=== PATIENT | female | born 1950 | race Caucasian/White ===

== ENCOUNTER → 2018-03-25 08:50 | Outpatient (CLI) | payer MEDICARE, SELFPAY ==
[2018-03-25 12:02] LABS: Absolute Lymphocyte Count 1.34 X10^3/ul (0.83-4.51); Absolute Neutrophil Count 5.4 X10^3/uL (2.0-7.7); Basophil# 0.03 X10^3/uL; Basophil% 0.4 % (0-1); Eosinophil# 0.07 X10^3/uL; Eosinophils% 0.9 % (0-5); Hematocrit 42.6 % (37-47); Hemoglobin 14.1 g/dl (12.0-15.0); Lymphocyte # 1.34 X10^3/ul (4.0); Lymphocyte % 17.8 % (19-41); Mean Corp Hgb Conc 33.1 g/gl (32-36); Mean Corpuscular Hgb 29.7 pg (27.0-32.0); Mean Corpuscular Volume 89.7 fL (81-99); Mean Platelet Vol. 9.8 fl (6.2-12.0); Monocyte# 0.62 X10^3/uL; Monocyte% 8.3 % (0-10); Neutrophil # 5.44 X10^3/uL (2.7-7.7); Neutrophil % 72.5 % (47-70); Platelet Count 315 K/mm3 (150-450); RBC Distribution Width CV 12.1 % (11.6-14.6); RBC Distribution Width SD 39.5 fl (35.1-43.9); Red Blood Count 4.75 M/mm3 (4.2-5.4); White Blood Count 7.5 K/mm3 (4.4-11.0)
[2018-03-25 12:06] LABS: POSITIVE COUNT NO; POSITIVE DIFFERENTIAL NO; POSITIVE MORPHOLOGY NO
[2018-03-25 12:36] LABS: AST(SGOT) 21 U/L (15-37); Alanine Aminotransfer ALT/SGPT 33 U/L (13-56); Albumin, Serum 3.8 g/dL (3.2-5.0); Alkaline Phosphatase 62 U/L (45-117); Anion Gap 9 (5-15); BUN 21 mg/dL (7-18); BUN/Creat Ratio 25.9 RATIO (10-20); Chloride 105 mmol/L (98-107); Creatinine, Serum 0.81 mg/dL (0.55-1.02); EST Glomerular Filtration Rate 74 mL/min (>60); Est Glom Filt Rate - Afr Amer 90 mL/min (>60); Globulin 3.7 g/dL (2.2-4.2); Glucose 105 mg/dL (74-106); Potassium 4.1 mmol/L (3.5-5.1); Protein, Total 7.5 g/dL (6.4-8.2); Sodium Level 141 mmol/L (136-145); Thyroid Stim Hormone (TSH) 1.49 uIU/mL (0.358-3.74); Vitamin D,25 Hydroxy 25.5 ng/mL (29.95-100.01)
== END ==
PROVIDERS: Family Provider Family Medicine Geriatric Medicine; PCP Family Medicine Geriatric Medicine; Visit Provider Family Medicine Geriatric Medicine
DX: I10 Essential (primary) hypertension (principal); E55.9 Vitamin D deficiency, unspecified; Z13.89 Encounter for screening for other disorder
CPT/HCPCS: 36415; 80053; 82306; 84443; 85025

== ENCOUNTER → 2018-04-28 07:56 | Outpatient (CLI) | payer MEDICARE, SELFPAY ==
--- NOTE | 2018-04-28 07:57 | BI_ITS ---
MAMMOGRAPHY - BILATERAL SCREENING 3-D CARLTON SYNTHESIS REASON FOR EXAM: Female, 67 years old. Bilateral Screening 3-D tomosynthesis PERTINENT HISTORY: No significant family history. TECHNIQUE: 2-D mammograms and 3-D Carlton synthesis of the breast (s) were performed. CAD was performed. COMPARISON: 04/27/2017 FINDINGS: The breast composition is composed of scattered fibroglandular density. Scattered benign calcifications are seen. No dense spiculated masses or suspicious microcalcifications are identified. No architectural distortion is identified. There is no skin thickening or retraction. There has been no significant change since the prior study. BI/SCREENING MAMM (CAD), BILAT IMPRESSION: No mammographic signs of malignancy. Routine yearly mammograms recommended. ASSESSMENT CATEGORY: BIRADS Category 1: Negative. A letter regarding these results will be sent to the patient by the facility within 30 days. FOLLOW UP RECOMMENDATION: Yearly follow up mammogram recommended. (A) Approximately 10% of breast cancers are not detected by mammography. A normal mammogram should not delay biopsy of a clinically suspicious abnormality. Electronically Signed: Aris Black MD at 11:33 EDT , Service support ,
== END ==
PROVIDERS: Family Provider Family Medicine Geriatric Medicine; PCP Family Medicine Geriatric Medicine; Visit Provider Family Medicine Geriatric Medicine
DX: Z12.31 Encounter for screening mammogram for malignant neoplasm of breast (principal)
CPT/HCPCS: 77063; 77067

== ENCOUNTER → 2018-11-23 13:30 | Outpatient (CLI) | payer MEDICARE, SELFPAY ==
[2018-08-08 09:52] VITALS: BMI 29.5
[2018-11-23 16:10] LABS: Absolute Lymphocyte Count 1.68 X10^3/ul (0.83-4.51); Absolute Neutrophil Count 4.3 X10^3/uL (2.0-7.7); Basophil# 0.04 X10^3/uL; Basophil% 0.6 % (0-1); Eosinophil# 0.13 X10^3/uL; Eosinophils% 1.9 % (0-5); Hematocrit 41.8 % (37-47); Lymphocyte # 1.68 X10^3/ul (4.0); Lymphocyte % 24.3 % (19-41); Mean Corp Hgb Conc 33.5 g/gl (32-36); Mean Corpuscular Hgb 29.9 pg (27.0-32.0); Mean Corpuscular Volume 89.1 fL (81-99); Mean Platelet Vol. 10.6 fl (6.2-12.0); Monocyte# 0.76 X10^3/uL; Neutrophil # 4.28 X10^3/uL (2.7-7.7); Neutrophil % 62.1 % (47-70); Platelet Count 314 K/mm3 (150-450); RBC Distribution Width CV 11.7 % (11.6-14.6); Red Blood Count 4.69 M/mm3 (4.2-5.4); White Blood Count 6.9 K/mm3 (4.4-11.0)
[2018-11-23 16:20] LABS: POSITIVE COUNT NO; POSITIVE DIFFERENTIAL NO; POSITIVE MORPHOLOGY NO
[2018-11-23 16:25] LABS: AST(SGOT) 22 U/L (15-37); Alanine Aminotransfer ALT/SGPT 30 U/L (13-56); Albumin, Serum 3.7 g/dL (3.2-5.0); Alkaline Phosphatase 76 U/L (45-117); Anion Gap 8 (5-15); BUN 17 mg/dL (7-18); BUN/Creat Ratio 23.3 RATIO (10-20); Calcium,Total 8.9 mg/dL (8.5-10.1); Chloride 102 mmol/L (98-107); Creatinine, Serum 0.73 mg/dL (0.55-1.02); EST Glomerular Filtration Rate 84 mL/min (>60); Est Glom Filt Rate - Afr Amer 101 mL/min (>60); Globulin 3.8 g/dL (2.2-4.2); Glucose 89 mg/dL (74-106); Potassium 3.6 mmol/L (3.5-5.1); Protein, Total 7.5 g/dL (6.4-8.2); Sodium Level 136 mmol/L (136-145); Thyroid Stim Hormone (TSH) 2.93 uIU/mL (0.358-3.74)
== END ==
PROVIDERS: Family Provider Family Medicine Geriatric Medicine; PCP Family Medicine Geriatric Medicine; Visit Provider Family Medicine Geriatric Medicine
DX: I10 Essential (primary) hypertension (principal); E55.9 Vitamin D deficiency, unspecified
CPT/HCPCS: 36415; 80053; 82306; 84443; 85025

== ENCOUNTER → 2019-03-28 | Outpatient (CLI) | payer MEDICARE, SELFPAY ==
[2018-08-08 09:52] VITALS: BMI 29.5
--- NOTE | 2019-03-28 13:55 | RAD_ITS ---
STUDY: X-RAY - CERVICAL SPINE REASON FOR EXAM: Female, 68 years old. TECHNIQUE: 3 view(s) of the cervical spine were obtained. COMPARISON: None FINDINGS: The vertebral bodies are of normal height, there is straightening of the cervical lordosis. The intervertebral disks between C2-3 and C3-4 are maintained. There is slight narrowing of C4-5 with minimal anterior osteophyte formation. Severe narrowing is seen between C5-C6 and C6-7 with anterior osteophyte formation. The spinous processes are unremarkable. The facet joints are intact RAD/Cerv Spine 2 or 3 Views IMPRESSION: Narrowing of the intervertebral disc start from the level of C4 down to C7 with anterior osteophyte formation without significant spondylosis. Electronically Signed: Juan Osman, at 16:47 EDT Tel , Service support ,
[2019-03-28 17:23] LABS: Absolute Lymphocyte Count 1.61 X10^3/ul (0.83-4.51); Absolute Neutrophil Count 3.8 X10^3/uL (2.0-7.7); Basophil# 0.07 X10^3/uL; Basophil% 1.1 % (0-1); Eosinophil# 0.14 X10^3/uL; Eosinophils% 2.3 % (0-5); Hematocrit 42.6 % (37-47); Hemoglobin 14.2 g/dl (12.0-15.0); Lymphocyte # 1.61 X10^3/ul (4.0); Lymphocyte % 26.4 % (19-41); Mean Corp Hgb Conc 33.3 g/gl (32-36); Mean Corpuscular Hgb 29.5 pg (27.0-32.0); Mean Corpuscular Volume 88.6 fL (81-99); Mean Platelet Vol. 10.5 fl (6.2-12.0); Monocyte# 0.47 X10^3/uL; Monocyte% 7.7 % (0-10); Neutrophil % 62.3 % (47-70); Platelet Count 297 K/mm3 (150-450); RBC Distribution Width CV 12.1 % (11.6-14.6); Red Blood Count 4.81 M/mm3 (4.2-5.4); White Blood Count 6.1 K/mm3 (4.4-11.0)
[2019-03-28 17:30] LABS: POSITIVE COUNT NO; POSITIVE DIFFERENTIAL NO; POSITIVE MORPHOLOGY NO
[2019-03-28 17:53] LABS: Vitamin D,25 Hydroxy 25.3 ng/mL (29.95-100.01)
[2019-03-28 17:55] LABS: AST(SGOT) 23 U/L (15-37); Alanine Aminotransfer ALT/SGPT 32 U/L (13-56); Albumin, Serum 3.7 g/dL (3.2-5.0); Alkaline Phosphatase 79 U/L (45-117); Anion Gap 13 (5-15); BUN 17 mg/dL (7-18); BUN/Creat Ratio 22.5 RATIO (10-20); Chloride 104 mmol/L (98-107); Creatinine, Serum 0.76 mg/dL (0.55-1.02); EST Glomerular Filtration Rate 81 mL/min (>60); Est Glom Filt Rate - Afr Amer 97 mL/min (>60); Globulin 3.7 g/dL (2.2-4.2); Glucose 89 mg/dL (74-106); Potassium 3.6 mmol/L (3.5-5.1); Protein, Total 7.4 g/dL (6.4-8.2); Sodium Level 141 mmol/L (136-145); Thyroid Stim Hormone (TSH) 2.08 uIU/mL (0.358-3.74)
== END | disposition home or self-care (01) ==
LOC: POLAB3 13:04 → RAD 13:48
PROVIDERS: Family Provider Family Medicine Geriatric Medicine; PCP Family Medicine Geriatric Medicine; Referring Provider Family Medicine Geriatric Medicine; Visit Provider Family Medicine Geriatric Medicine
DX: E55.9 Vitamin D deficiency, unspecified (principal); I10 Essential (primary) hypertension; M54.2 Cervicalgia
CPT/HCPCS: 36415; 72040; 80053; 82306; 84443; 85025

== ENCOUNTER → 2019-05-16 10:02 | Outpatient (CLI) | payer MEDICARE, SELFPAY ==
[2018-08-08 09:52] VITALS: BMI 29.5
--- NOTE | 2019-05-16 10:05 | BI_ITS ---
MAMMOGRAPHY - BILATERAL SCREENING REASON FOR EXAM: Female, 68 years old. Routine annual screening examination. PERTINENT HISTORY: Non-contributory. TECHNIQUE: Digital bilateral breast carlton (3D mammographic acquisition) in the CC and MLO projections. 2-D mediolateral oblique (MLO) and craniocaudad (CC) views of both breasts were obtained. CAD: Full Field Digital Mammography with Computer Added Detection was performed. COMPARISON: Comparison is made with prior study dated April 28, 2018 and April 27, 2017. FINDINGS: Breast Composition: There are scattered areas of fibroglandular density. There are no dominant masses or suspicious calcifications. No other significant abnormalities are identified. There has been no significant change since the prior study. BI/SCREEN MAMM (CAD) W/CARLTON BILAT IMPRESSION: Stable bilateral screening mammogram. Yearly follow-up mammogram recommended. (A) ASSESSMENT CATEGORY: BIRADS Category 1: Negative. A letter regarding these results will be sent to the patient by the facility within 30 days. Approximately 10% of breast cancers are not detected by mammography. A normal mammogram should not delay biopsy of a clinically suspicious abnormality. [id number] Electronically Signed: Yassine Chance, at 13:03 EDT , Service support ,
--- NOTE | 2019-05-16 10:08 | BD_ITS ---
STUDY: DUAL ENERGY X-RAY ABSORPTIOMETRY / DXA REASON FOR EXAM: Female, 68 years old. The patient is postmenopausal. Loss of height. TECHNIQUE: Bone Mineral Density (BMD) measurements of lumbar spine and bilateral hips were obtained. COMPARISON: Comparison is made with prior study dated December 25, 2010. FINDINGS: Lumbar Spine (L1-L4): g/cm2 (1.143) / T-score (-0.3) / Z-score (1.4) Findings are suggestive of normal bone density with a low fracture risk. Left Femur Total: g/cm2 (1.081) / T-score (0.6) / Z-score (2.1) Left Femoral Neck: g/cm2 (1.075) / T-score (0.3) / Z-score (2.0) Right Femur Total: g/cm2 (1.095) / T-score (0.7) / Z-score (2.2) Right Femoral Neck: g/cm2 (1.006) / T-score (-0.2) / Z-score (1.5) The T-Scores on the most recent prior examination were: Lumbar Spine (L1-L4): There has been improvement of bone density since the previous examination. Left Femur Total: which represents an improvement of 1%. Right Femur Total: which represents an improvement of 0.6%. BD/Dexa Bone Density Study IMPRESSION: The patient is considered normal as outlined below according to World Vargas Organization (WHO) criteria with a low fracture risk. There has been improvement of bone density since the previous examination. Reference Information: The T-score is the number of standard deviations above or below the standard which is normal for young adults at their peak bone mineral density. The World Health Organization (WHO) interprets the T-scores as follows: Above -1 Normal bone density Between -1 and -2.5 Osteopenia Equal to / or below -2.5 Osteoporosis As a practical clinical guideline, osteopenia may be graded as follows: Mild -1 through -1.5 Moderate -1.6 through -2.0 Severe -2.1 through -2.4 The Z-score is the number of standard deviations above or below age-matched controls. A Z-score of less than -1.5 would be considered abnormal. References: 1. NIH Osteoporosis and Related Bone Diseases http://www.osteo.org 2. International Society for Clinical Densitometry http://www.iscd.org 3. National Osteoporosis Foundation http://www.nof.org Electronically Signed: Yassine Chance, at 15:33 EDT , Service support ,
== END ==
PROVIDERS: Family Provider Family Medicine Geriatric Medicine; PCP Family Medicine Geriatric Medicine; Referring Provider Family Medicine Geriatric Medicine; Visit Provider Family Medicine Geriatric Medicine
DX: Z78.0 Asymptomatic menopausal state (principal); Z12.31 Encounter for screening mammogram for malignant neoplasm of breast
CPT/HCPCS: 77063; 77067; 77080

== ENCOUNTER → 2019-08-01 | Outpatient (CLI) | payer MEDICARE, SELFPAY ==
[2018-08-08 09:52] VITALS: BMI 29.5
--- NOTE | 2019-08-01 07:54 | ECHOD_ITS ---
Reason For Study: MVP Procedure This was a 2D Doppler, Color Flow transthoracic echocardiogram. The exam was of adequate technical quality. Exam performed in department. Left Ventricle Normal LV size. Left ventricular systolic function is normal. The estimated ejection fraction is 65 %. No evidence for diastolic dysfunction. No regional wall motion abnormalities noted. Right Ventricle Normal RV size. Normal systolic function. Atria The left atrium is mildly enlarged. Normal right atrium. No doppler evidence for ASD. Mitral Valve There is no mitral annular calcification. Mild diffuse mitral valve thickening. Mild mitral valve prolapse. Moderate (2+) mitral valve insufficiency. Tricuspid Valve Normal tricuspid valve. Trivial tricuspid valve insufficiency. Right ventricular systolic pressure estimated to be 19 mmHg. Aortic Valve Trisinus/trileaflet aortic valve. Mild focal aortic valve thickening. Pulmonic Valve The pulmonic valve is not well visualized. Mild (1+) pulmonic valve insufficiency. Great Vessels Normal sized aortic root. Pericardium/Pleural No pericardial effusion. MMode/2D Measurements & Calculations LVIDd: 4.1 cm IVSd: 0.85 cm Ao root diam: 3.5 cm LVIDs: 2.7 cm LVPWd: 0.88 cm LA dimension: 3.6 cm RVDd: 3.2 cm FS: 35.0 % LAV(MOD-bp): 52.7 ml LVAd ap4: 26.3 cm2 SV(MOD-sp4): 44.3 ml LAV(MOD-bp) Indexed: 27.2 ml/m2 EDV(MOD-sp4): 73.9 ml LAV(MOD-sp2): 47.6 ml EDV(sp4-el): 76.0 ml LAV(MOD-sp4): 51.9 ml LVAs ap4: 15.0 cm2 ESV(MOD-sp4): 29.6 ml ESV(sp4-el): 29.4 ml EF(MOD-sp4): 59.9 % EF(sp4-el): 61.3 % SV(sp4-el): 46.6 ml LA A4 area: 17.7 cm2 RA A4 area: 12.9 cm2 Time Measurements MV dec time: 0.24 sec Doppler Measurements & Calculations MV E max silviano: 70.7 cm/sec Lat Peak E' Silviano: 6.3 cm/sec Med Peak E' Silviano: 6.4 cm/sec MV A max silviano: 91.0 cm/sec E/E' lat: 11.2 E/E' med: 11.1 MV E/A: 0.78 MV V2 max: 103.5 cm/sec MV P1/2t max silviano: 92.5 cm/sec Ao V2 max: 125.1 cm/sec MV max P.3 mmHg MV P1/2t: 107.3 msec Ao max P.3 mmHg MV V2 mean: 61.2 cm/sec Ao V2 mean: 81.3 cm/sec MV mean P.7 mmHg MV dec slope: 252.7 cm/sec2 Ao mean P.0 mmHg MV V2 VTI: 37.6 cm MVA(P1/2t): 2.1 cm2 Ao V2 VTI: 26.0 cm LV V1 max: 97.6 cm/sec MR max silivano: 579.1 cm/sec PA V2 max: 111.7 cm/sec LV V1 max P.8 mmHg MR max P.1 mmHg LV V1 mean P.8 mmHg MR mean silviano: 441.1 cm/sec LV V1 mean: 62.0 cm/sec MR mean P.7 mmHg LV V1 VTI: 21.1 cm MR VTI: 180.8 cm TR max silviano: 200.7 cm/sec TR max P.1 mmHg Interpretation Summary Left ventricular systolic function is normal. The estimated ejection fraction is 65 %. The left atrium is mildly enlarged. Mild mitral valve prolapse. Mild diffuse mitral valve thickening. Moderate (2+) mitral valve insufficiency. Trivial tricuspid valve insufficiency. Mild focal aortic valve thickening. Mild (1+) pulmonic valve insufficiency. Right ventricular systolic pressure estimated to be 19 mmHg. No evidence for diastolic dysfunction. Ordering Physician: Emir White Referring Physician: Lennox Babcock Chi Performed By: Gerry William RCS
== END | disposition home or self-care (01) ==
LOC: CVS 07:53
PROVIDERS: Family Provider Family Medicine Geriatric Medicine; PCP Family Medicine Geriatric Medicine; Referring Provider Internal Medicine Cardiovascular Disease; Visit Provider Internal Medicine Cardiovascular Disease
DX: I34.0 Nonrheumatic mitral (valve) insufficiency (principal); I34.1 Nonrheumatic mitral (valve) prolapse; I49.1 Atrial premature depolarization
CPT/HCPCS: 93306

== ENCOUNTER → 2019-11-13 09:39 | Outpatient (CLI) | payer MEDICARE, SELFPAY ==
[2019-08-16 14:15] VITALS: BMI 28.8
[2019-11-13 12:16] LABS: Absolute Lymphocyte Count 1.61 X10^3/uL (0.83-4.51); Absolute Neutrophil Count 4.2 X10^3/uL (2.0-7.7); Basophil# 0.06 X10^3/uL; Basophil% 0.8 % (0-1); Eosinophil# 1.05 X10^3/uL; Eosinophils% 13.7 % (0-5); Hemoglobin 14.4 g/dL (12.0-15.0); Lymphocyte # 1.61 X10^3/ul (4.0); Mean Corp Hgb Conc 32.7 g/dL (32-36); Mean Corpuscular Hgb 28.8 pg (27.0-32.0); Mean Platelet Vol. 10.3 fl (6.2-12.0); Monocyte% 9.1 % (0-10); NRBC Flagged by Analyzer 0 % (0-5); Neutrophil # 4.21 X10^3/uL (2.7-7.7); Platelet Count 328 K/mm3 (150-450); RBC Distribution Width CV 11.7 % (11.6-14.6); RBC Distribution Width SD 37.4 fl (35.1-43.9); White Blood Count 7.7 K/mm3 (4.4-11.0)
[2019-11-13 12:39] LABS: ALB/GLOB Ratio 1.1 RATIO (0.9-2.4); AST(SGOT) 17 U/L (15-37); Alanine Aminotransfer ALT/SGPT 35 U/L (13-56); Albumin, Serum 3.9 g/dL (3.2-5.0); Alkaline Phosphatase 71 U/L (45-117); Anion Gap 7 (5-15); BUN 18 mg/dL (7-18); BUN/Creat Ratio 23.1 RATIO (10-20); Calcium,Total 9.3 mg/dL (8.5-10.1); Chloride 101 mmol/L (98-107); Creatinine, Serum 0.78 mg/dL (0.55-1.02); EST Glomerular Filtration Rate 78 mL/min (>60); Est Glom Filt Rate - Afr Amer 94 mL/min (>60); Globulin 3.7 g/dL (2.2-4.2); Glucose 88 mg/dL (74-106); Potassium 3.8 mmol/L (3.5-5.1); Protein, Total 7.6 g/dL (6.4-8.2); Sodium Level 136 mmol/L (136-145); Thyroid Stim Hormone (TSH) 2.21 uIU/mL (0.358-3.74)
[2019-11-13 12:40] LABS: Vitamin D,25 Hydroxy 24.6 ng/mL (29.95-100.01)
== END ==
PROVIDERS: PCP Family Medicine Geriatric Medicine; Visit Provider Family Medicine Geriatric Medicine
DX: I10 Essential (primary) hypertension (principal); E55.9 Vitamin D deficiency, unspecified
CPT/HCPCS: 36415; 80053; 82306; 84443; 85025

== ENCOUNTER → 2020-03-29 10:59 | Outpatient (CLI) | payer MEDICARE, SELFPAY ==
[2019-08-16 14:15] VITALS: BMI 28.8
[2020-03-29 12:20] LABS: Absolute Neutrophil Count 3.7 X10^3/uL (2.0-7.7); Basophil# 0.07 X10^3/uL; Basophil% 1.2 % (0-1); Eosinophil# 0.12 X10^3/uL; Hematocrit 43.5 % (37-47); Hemoglobin 14.4 g/dL (12.0-15.0); Lymphocyte % 23.9 % (19-41); Mean Corp Hgb Conc 33.1 g/dL (32-36); Mean Corpuscular Hgb 29.7 pg (27.0-32.0); Mean Corpuscular Volume 89.7 fL (81-99); Mean Platelet Vol. 10.2 fl (6.2-12.0); Monocyte# 0.56 X10^3/uL; Monocyte% 9.5 % (0-10); NRBC Flagged by Analyzer 0 % (0-5); Neutrophil % 63.1 % (47-70); Platelet Count 335 K/mm3 (150-450); RBC Distribution Width CV 11.8 % (11.6-14.6); RBC Distribution Width SD 37.8 fl (35.1-43.9); Red Blood Count 4.85 M/mm3 (4.2-5.4); White Blood Count 5.9 K/mm3 (4.4-11.0)
[2020-03-29 12:35] LABS: Vitamin D,25 Hydroxy 39.5 ng/mL
[2020-03-29 12:53] LABS: AST(SGOT) 21 U/L (15-37); Alanine Aminotransfer ALT/SGPT 30 U/L (13-56); Albumin, Serum 3.8 g/dL (3.2-5.0); Alkaline Phosphatase 69 U/L (45-117); Anion Gap 6 (5-15); BUN 15 mg/dL (7-18); BUN/Creat Ratio 19.2 RATIO (10-20); Calcium,Total 9.4 mg/dL (8.5-10.1); Chloride 105 mmol/L (98-107); Creatinine, Serum 0.78 mg/dL (0.55-1.02); EST Glomerular Filtration Rate 77 mL/min (>60); Est Glom Filt Rate - Afr Amer 93 mL/min (>60); Globulin 3.7 g/dL (2.2-4.2); Glucose 107 mg/dL (74-106); Potassium 3.7 mmol/L (3.5-5.1); Protein, Total 7.5 g/dL (6.4-8.2); Sodium Level 139 mmol/L (136-145); Thyroid Stim Hormone (TSH) 2.36 uIU/mL (0.358-3.74)
== END ==
PROVIDERS: PCP Family Medicine Geriatric Medicine; Visit Provider Family Medicine Geriatric Medicine
DX: E55.9 Vitamin D deficiency, unspecified (principal); I10 Essential (primary) hypertension
CPT/HCPCS: 36415; 80053; 82306; 84443; 85025

== ENCOUNTER → 2020-05-17 07:13 | Outpatient (CLI) | payer MEDICARE, SELFPAY ==
[2019-08-16 14:15] VITALS: BMI 28.8
--- NOTE | 2020-05-17 07:14 | BI_ITS ---
MAMMOGRAPHY - BILATERAL SCREENING REASON FOR EXAM: Female, 69 years old. Routine annual screening examination. PERTINENT HISTORY: Non-contributory. TECHNIQUE: Digital bilateral breast carlton (3D mammographic acquisition) in the CC and MLO projections. 2-D mediolateral oblique (MLO) and craniocaudad (CC) views of both breasts were obtained. CAD: Full Field Digital Mammography with Computer Added Detection was performed. COMPARISON: Comparison is made with prior examination in 05/16/2019 and 04/28/2018. FINDINGS: Breast Composition: There are scattered areas of fibroglandular density. There are no dominant masses or suspicious calcifications. Stable small benign-appearing bilateral axillary lymph nodes. No other significant abnormalities are identified. There has been no significant change since the prior study. BI/SCREEN MAMM (CAD) W/CARLTON BILAT IMPRESSION: Stable bilateral screening mammogram. Yearly follow-up mammogram recommended. (A) ASSESSMENT CATEGORY: BIRADS Category 2: Benign. A letter regarding these results will be sent to the patient by the facility within 30 days. Approximately 10% of breast cancers are not detected by mammography. A normal mammogram should not delay biopsy of a clinically suspicious abnormality. [id number] Electronically Signed: Yassine Chance, at 8:51 EDT , Service support ,
== END ==
PROVIDERS: PCP Family Medicine Geriatric Medicine; Referring Provider Family Medicine Geriatric Medicine; Visit Provider Family Medicine Geriatric Medicine
DX: Z12.31 Encounter for screening mammogram for malignant neoplasm of breast (principal)
CPT/HCPCS: 77063; 77067

== ENCOUNTER → 2020-10-03 09:49 | Outpatient (CLI) | payer MEDICARE, SELFPAY ==
[2020-08-19 13:25] VITALS: BMI 30.6
[2020-10-03 12:23] LABS: Absolute Lymphocyte Count 1.45 X10^3/uL (0.83-4.51); Absolute Neutrophil Count 3.6 X10^3/uL (2.0-7.7); Basophil# 0.08 X10^3/uL; Basophil% 1.4 % (0-1); Eosinophil# 0.11 X10^3/uL; Eosinophils% 1.9 % (0-5); Hemoglobin 14.4 g/dL (12.0-15.0); Lymphocyte # 1.45 X10^3/ul (4.0); Lymphocyte % 24.7 % (19-41); Mean Corp Hgb Conc 32.7 g/dL (32-36); Mean Corpuscular Hgb 29.2 pg (27.0-32.0); Mean Corpuscular Volume 89.2 fL (81-99); Monocyte# 0.61 X10^3/uL; Monocyte% 10.4 % (0-10); NRBC Flagged by Analyzer 0 % (0-5); Neutrophil % 61.3 % (47-70); Platelet Count 323 K/mm3 (150-450); RBC Distribution Width CV 11.7 % (11.6-14.6); RBC Distribution Width SD 37.9 fl (35.1-43.9); Red Blood Count 4.93 M/mm3 (4.2-5.4); White Blood Count 5.9 K/mm3 (4.4-11.0)
[2020-10-03 12:40] LABS: Vitamin D,25 Hydroxy 23.5 ng/mL
[2020-10-03 12:49] LABS: AST(SGOT) 26 U/L (15-37); Alanine Aminotransfer ALT/SGPT 43 U/L (13-56); Albumin, Serum 3.7 g/dL (3.2-5.0); Alkaline Phosphatase 77 U/L (45-117); Anion Gap 7 (5-15); BUN 15 mg/dL (7-18); BUN/Creat Ratio 17.9 RATIO (10-20); Calcium,Total 9.2 mg/dL (8.5-10.1); Chloride 106 mmol/L (98-107); Creatinine, Serum 0.84 mg/dL (0.55-1.02); EST Glomerular Filtration Rate 71 mL/min (>60); Est Glom Filt Rate - Afr Amer 86 mL/min (>60); Globulin 3.8 g/dL (2.2-4.2); Glucose 99 mg/dL (74-106); Potassium 4.2 mmol/L (3.5-5.1); Protein, Total 7.5 g/dL (6.4-8.2); Sodium Level 138 mmol/L (136-145); Thyroid Stim Hormone (TSH) 2.04 uIU/mL (0.358-3.74)
== END ==
PROVIDERS: PCP Family Medicine Geriatric Medicine; Visit Provider Family Medicine Geriatric Medicine
DX: E55.9 Vitamin D deficiency, unspecified (principal); I10 Essential (primary) hypertension
CPT/HCPCS: 36415; 80053; 82306; 84443; 85025

== ENCOUNTER → 2021-04-03 10:25 | Outpatient (CLI) | payer MEDICARE, SELFPAY ==
[2020-08-19 13:25] VITALS: BMI 30.6
[2021-04-03 12:04] LABS: Absolute Lymphocyte Count 1.43 X10^3/uL (0.83-4.51); Absolute Neutrophil Count 4.1 X10^3/uL (2.0-7.7); Basophil# 0.07 X10^3/uL; Basophil% 1.1 % (0-1); Eosinophil# 0.12 X10^3/uL; Eosinophils% 1.9 % (0-5); Hematocrit 44.1 % (37-47); Hemoglobin 14.5 g/dL (12.0-15.0); Lymphocyte # 1.43 X10^3/ul (0.83-4.51); Lymphocyte % 22.6 % (19-41); Mean Corp Hgb Conc 32.9 g/dL (32-36); Mean Corpuscular Hgb 29.3 pg (27.0-32.0); Mean Corpuscular Volume 89.1 fL (81-99); Mean Platelet Vol. 10.2 fl (6.2-12.0); Monocyte# 0.57 X10^3/uL; NRBC Flagged by Analyzer 0 % (0-5); Neutrophil # 4.13 X10^3/uL (2.7-7.7); Neutrophil % 65.1 % (47-70); Platelet Count 322 K/mm3 (150-450); RBC Distribution Width CV 11.7 % (11.6-14.6); RBC Distribution Width SD 37.8 fl (35.1-43.9); Red Blood Count 4.95 M/mm3 (4.2-5.4); White Blood Count 6.3 K/mm3 (4.4-11.0)
[2021-04-03 12:16] LABS: Vitamin D,25 Hydroxy 33.4 ng/mL
[2021-04-03 12:26] LABS: ALB/GLOB Ratio 1.1 RATIO (0.9-2.4); AST(SGOT) 21 U/L (15-37); Alanine Aminotransfer ALT/SGPT 32 U/L (13-56); Albumin, Serum 3.8 g/dL (3.2-5.0); Alkaline Phosphatase 73 U/L (45-117); Anion Gap 8 (5-15); BUN 17 mg/dL (7-18); BUN/Creat Ratio 20.9 RATIO (10-20); Calcium,Total 9.1 mg/dL (8.5-10.1); Chloride 102 mmol/L (98-107); Creatinine, Serum 0.81 mg/dL (0.55-1.02); EST Glomerular Filtration Rate 73 mL/min (>60); Est Glom Filt Rate - Afr Amer 89 mL/min (>60); Globulin 3.6 g/dL (2.2-4.2); Glucose 99 mg/dL (74-106); Potassium 3.9 mmol/L (3.5-5.1); Protein, Total 7.4 g/dL (6.4-8.2); Sodium Level 139 mmol/L (136-145); Thyroid Stim Hormone (TSH) 1.94 uIU/mL (0.358-3.74)
== END ==
PROVIDERS: PCP Family Medicine Geriatric Medicine; Visit Provider Family Medicine Geriatric Medicine
DX: E55.9 Vitamin D deficiency, unspecified (principal); I10 Essential (primary) hypertension
CPT/HCPCS: 36415; 80053; 82306; 84443; 85025

== ENCOUNTER → 2021-05-20 09:20 | Outpatient (CLI) | payer MEDICARE, SELFPAY ==
[2020-08-19 13:25] VITALS: BMI 30.6
--- NOTE | 2021-05-20 09:23 | BI_ITS ---
MAMMOGRAPHY - BILATERAL SCREENING REASON FOR EXAM: Female, 70 years old. Routine annual screening examination. PERTINENT HISTORY: Non-contributory. TECHNIQUE: Digital bilateral breast carlton (3D mammographic acquisition) in the CC and MLO projections. 2-D mediolateral oblique (MLO) and craniocaudad (CC) views of both breasts were obtained. CAD: Full Field Digital Mammography with Computer Added Detection was performed. COMPARISON: Comparison is made with prior study dated 05/17/2020 and 05/16/2019. FINDINGS: Breast Composition: There are scattered areas of fibroglandular density. There are no dominant masses or suspicious calcifications. Stable small benign-appearing bilateral axillary nodes. No other significant abnormalities are identified. There has been no significant change since the prior study. BI/SCRN MAMM (CAD)W/CARLTON BILAT IMPRESSION: Stable bilateral screening mammogram. Yearly follow-up mammogram recommended. (A) ASSESSMENT CATEGORY: BIRADS Category 2: Benign. A letter regarding these results will be sent to the patient by the facility within 30 days. Approximately 10% of breast cancers are not detected by mammography. A normal mammogram should not delay biopsy of a clinically suspicious abnormality. [id number] Electronically Signed: Yassine Chance MD at 10:43 EDT , Service support ,
--- NOTE | 2021-05-20 09:27 | BD_ITS ---
STUDY: DUAL ENERGY X-RAY ABSORPTIOMETRY / DXA REASON FOR EXAM: Female, 70 years old. [id number]. Patient is postmenopausal. TECHNIQUE: Bone Mineral Density (BMD) measurements of lumbar spine and bilateral hips were obtained. COMPARISON: Comparison is made with prior study 05/16/2019. FINDINGS: Lumbar Spine (L1-L4): g/cm2 (0.943) / T-score (-0.9) / Z-score (1.3) Findings are suggestive of normal bone density with a low fracture risk. Left Femur Total: g/cm2 (0.987) / T-score (0.4) / Z-score (2.0) Left Femoral Neck: g/cm2 (0.883) / T-score (0.3) / Z-score (2.2) Right Femur Total: g/cm2 (1.028) / T-score (0.7) / Z-score (2.4) Right Femoral Neck: g/cm2 (0.829) / T-score (-0.2) / Z-score (1.8) The T-Scores on the most recent prior examination were: Lumbar Spine (L1-L4): There has been worsening of bone density since the previous examination. Left Femur Total: which represents a worsening of 2.5%. Right Femur Total: which represents an improvement of 0.2%. BD/Dexa Bone Density Study IMPRESSION: The patient is considered normal as outlined below according to World Vargas Organization (WHO) criteria with a low fracture risk. There has been worsening of bone density since the previous examination. Reference Information: The T-score is the number of standard deviations above or below the standard which is normal for young adults at their peak bone mineral density. The World Health Organization (WHO) interprets the T-scores as follows: Above -1 Normal bone density Between -1 and -2.5 Osteopenia Equal to / or below -2.5 Osteoporosis As a practical clinical guideline, osteopenia may be graded as follows: Mild -1 through -1.5 Moderate -1.6 through -2.0 Severe -2.1 through -2.4 The Z-score is the number of standard deviations above or below age-matched controls. A Z-score of less than -1.5 would be considered abnormal. References: 1. NIH Osteoporosis and Related Bone Diseases www osteo.org 2. International Society for Clinical Densitometry www iscd.org 3. National Osteoporosis Foundation www nof.org Electronically Signed: Yassine Chance MD at 9:34 EDT , Service support ,
== END ==
PROVIDERS: PCP Family Medicine Geriatric Medicine; Referring Provider Family Medicine Geriatric Medicine; Visit Provider Family Medicine Geriatric Medicine
DX: Z12.31 Encounter for screening mammogram for malignant neoplasm of breast (principal); Z78.0 Asymptomatic menopausal state
CPT/HCPCS: 77063; 77067; 77080

== ENCOUNTER → 2021-08-08 13:02 | Outpatient (CLI) | payer MEDICARE, SELFPAY | PROVIDERS: PCP Family Medicine Geriatric Medicine; Referring Provider Family Medicine Geriatric Medicine; Visit Provider Family Medicine Geriatric Medicine | DX: R68.83 Chills (without fever) (principal) | CPT/HCPCS: 87635; 87804; 87807; U0005; U0003 ==

== ENCOUNTER → 2021-08-12 09:33 | Outpatient (CLI) | payer MEDICARE, SELFPAY ==
--- NOTE | 2021-08-12 09:38 | ECHOCS_ITS ---
Reason For Study: MVP Procedure This was a 2D Doppler, Color Flow transthoracic echocardiogram. Technically difficult study due to respiratory interference. Contrast injection was used. The study was technically difficult. Contrast injection was performed. Exam performed in department. Left Ventricle Normal LV size. Left ventricular systolic function is normal. The estimated ejection fraction is 65 %. No evidence for diastolic dysfunction. No regional wall motion abnormalities noted. Right Ventricle Normal RV size. Normal systolic function. Atria Normal left atrium. Normal right atrium. No doppler evidence for ASD. Mitral Valve There is no mitral annular calcification. Mild diffuse mitral valve thickening. Mild mitral valve prolapse. Trivial mitral valve insufficiency. Tricuspid Valve Normal tricuspid valve. Trivial tricuspid valve insufficiency. Right ventricular systolic pressure estimated to be 22 mmHg. Aortic Valve The aortic valve is not well visualized. Pulmonic Valve The pulmonic valve is not well visualized. Great Vessels The aortic root is not well visualized. Pericardium/Pleural No pericardial effusion. Medication 22 gauge I.V. with prn adaptor inserted into right arm. Diluted definity 2ml given slow IV push to enhance endocardial definition. MMode/2D Measurements & Calculations LVIDd: 4.4 cm IVSd: 1.00 cm LA dimension: 3.4 cm LVIDs: 2.4 cm LVPWd: 0.89 cm FS: 44.9 % LAV(MOD-bp): 42.8 ml LA A4 area: 17.7 cm2 RA A4 area: 10.6 cm2 LAV(MOD-bp) Indexed: 21.7 ml/m2 LAV(MOD-sp2): 38.4 ml LAV(MOD-sp4): 49.0 ml Time Measurements MV dec time: 0.32 sec Doppler Measurements & Calculations MV E max silviano: 78.5 cm/sec Lat Peak E' Silviano: 5.9 cm/sec Med Peak E' Silviano: 7.7 cm/sec MV A max silviano: 99.3 cm/sec E/E' lat: 13.2 E/E' med: 10.2 MV E/A: 0.79 MV V2 max: 102.1 cm/sec MV P1/2t max silviano: 99.2 cm/sec Ao V2 max: 144.5 cm/sec MV max P.2 mmHg MV P1/2t: 89.3 msec Ao max P.3 mmHg MV V2 mean: 63.7 cm/sec MV dec slope: 325.2 cm/sec2 MV mean P.8 mmHg MV V2 VTI: 34.1 cm MVA(P1/2t): 2.5 cm2 LV V1 max: 121.2 cm/sec TR max silviano: 216.1 cm/sec LV V1 max P.9 mmHg TR max P.7 mmHg ECHO/Echo Complete W/ Contrast Interpretation Summary The study was technically difficult. Contrast injection was performed. Left ventricular systolic function is normal. The estimated ejection fraction is 65 %. Mild mitral valve prolapse. Mild diffuse mitral valve thickening. Trivial mitral valve insufficiency. Trivial tricuspid valve insufficiency. Right ventricular systolic pressure estimated to be 22 mmHg. No evidence for diastolic dysfunction. Ordering Physician: Emir White Referring Physician: Lennox Babcock Chi Performed By: Gerry William RCS
== END ==
PROVIDERS: PCP Family Medicine Geriatric Medicine; Referring Provider Internal Medicine Cardiovascular Disease; Visit Provider Internal Medicine Cardiovascular Disease
DX: I49.1 Atrial premature depolarization (principal); I34.1 Nonrheumatic mitral (valve) prolapse
CPT/HCPCS: 93306; Q9957; A4216; C8929; J3490

== ENCOUNTER 2021-10-09 09:28 | Outpatient (CLI) | payer MEDICARE, SELFPAY ==
[2021-10-09 11:40] LABS: Absolute Lymphocyte Count 1.49 X10^3/uL (0.83-4.51); Absolute Neutrophil Count 6.5 X10^3/uL (2.0-7.7); Basophil# 0.07 X10^3/uL; Basophil% 0.8 % (0-1); Eosinophil# 0.08 X10^3/uL; Eosinophils% 0.9 % (0-5); Hemoglobin 15.2 g/dL (12.0-15.0); Lymphocyte # 1.49 X10^3/ul (0.83-4.51); Lymphocyte % 16.7 % (19-41); Mean Corp Hgb Conc 33.8 g/dL (32-36); Mean Corpuscular Volume 88.8 fL (81-99); Mean Platelet Vol. 9.8 fl (6.2-12.0); Monocyte# 0.74 X10^3/uL; Monocyte% 8.3 % (0-10); NRBC Flagged by Analyzer 0 % (0-5); Neutrophil # 6.53 X10^3/uL (2.7-7.7); Platelet Count 337 K/mm3 (150-450); RBC Distribution Width SD 38.9 fl (35.1-43.9); Red Blood Count 5.07 M/mm3 (4.2-5.4); White Blood Count 8.9 K/mm3 (4.4-11.0)
[2021-10-09 11:55] LABS: Vitamin D,25 Hydroxy 34.3 ng/mL
[2021-10-09 12:05] LABS: AST(SGOT) 18 U/L (15-37); Alanine Aminotransfer ALT/SGPT 31 U/L (13-56); Albumin, Serum 3.8 g/dL (3.2-5.0); Alkaline Phosphatase 64 U/L (45-117); Anion Gap 8 (5-15); BUN 17 mg/dL (7-18); BUN/Creat Ratio 22.1 RATIO (10-20); Calcium,Total 9.6 mg/dL (8.5-10.1); Chloride 101 mmol/L (98-107); Creatinine, Serum 0.77 mg/dL (0.55-1.02); EST Glomerular Filtration Rate 78 mL/min (>60); Est Glom Filt Rate - Afr Amer 95 mL/min (>60); Globulin 3.9 g/dL (2.2-4.2); Glucose 102 mg/dL (74-106); Potassium 4.2 mmol/L (3.5-5.1); Protein, Total 7.7 g/dL (6.4-8.2); Sodium Level 137 mmol/L (136-145); Thyroid Stim Hormone (TSH) 1.89 uIU/mL (0.358-3.74)
== END 2021-10-09 23:59 | disposition short-term general hospital (02) ==
LOC: POLAB3 09:29
PROVIDERS: PCP Family Medicine Geriatric Medicine; Visit Provider Family Medicine Geriatric Medicine
DX: E55.9 Vitamin D deficiency, unspecified (principal); I10 Essential (primary) hypertension
CPT/HCPCS: 36415; 80053; 82306; 84443; 85025

== ENCOUNTER → 2022-04-20 | Outpatient (CLI) | payer MEDICARE, SELFPAY ==
[2022-04-20 12:44] LABS: Absolute Lymphocyte Count 1.13 X10^3/uL (0.83-4.51); Absolute Neutrophil Count 4.4 X10^3/uL (2.0-7.7); Basophil# 0.06 X10^3/uL; Eosinophil# 0.13 X10^3/uL; Eosinophils% 2.1 % (0-5); Hematocrit 42.7 % (37-47); Hemoglobin 14.1 g/dL (12.0-15.0); Lymphocyte # 1.13 X10^3/ul (0.83-4.51); Lymphocyte % 18.1 % (19-41); Mean Corpuscular Hgb 29.6 pg (27.0-32.0); Mean Corpuscular Volume 89.7 fL (81-99); Mean Platelet Vol. 10.3 fl (6.2-12.0); Monocyte# 0.53 X10^3/uL; Monocyte% 8.5 % (0-10); NRBC Flagged by Analyzer 0 % (0-5); Neutrophil # 4.36 X10^3/uL (2.7-7.7); Neutrophil % 69.8 % (47-70); Platelet Count 321 K/mm3 (150-450); RBC Distribution Width CV 11.9 % (11.6-14.6); RBC Distribution Width SD 38.5 fl (35.1-43.9); Red Blood Count 4.76 M/mm3 (4.2-5.4); White Blood Count 6.2 K/mm3 (4.4-11.0)
[2022-04-20 12:53] LABS: Vitamin D,25 Hydroxy 42.8 ng/mL
[2022-04-20 13:02] LABS: AST(SGOT) 17 U/L (15-37); Alanine Aminotransfer ALT/SGPT 26 U/L (13-56); Albumin, Serum 3.6 g/dL (3.2-5.0); Alkaline Phosphatase 59 U/L (45-117); Anion Gap 3 (5-15); BUN 17 mg/dL (7-18); BUN/Creat Ratio 20.7 RATIO (10-20); Calcium,Total 9.3 mg/dL (8.5-10.1); Chloride 107 mmol/L (98-107); Creatinine, Serum 0.82 mg/dL (0.55-1.02); EST Glomerular Filtration Rate 73 mL/min (>60); Est Glom Filt Rate - Afr Amer 88 mL/min (>60); Globulin 3.6 g/dL (2.2-4.2); Glucose 117 mg/dL (74-106); Potassium 4.4 mmol/L (3.5-5.1); Protein, Total 7.2 g/dL (6.4-8.2); Sodium Level 140 mmol/L (136-145)
== END | disposition home or self-care (01) ==
LOC: POLAB3 08:53
PROVIDERS: PCP Family Medicine Geriatric Medicine; Visit Provider Family Medicine Geriatric Medicine
DX: E55.9 Vitamin D deficiency, unspecified (principal); I10 Essential (primary) hypertension
CPT/HCPCS: 36415; 80053; 82306; 84443; 85025

== ENCOUNTER → 2022-05-21 | Outpatient (CLI) | payer MEDICARE, SELFPAY ==
--- NOTE | 2022-05-21 07:14 | BI_ITS ---
MAMMOGRAPHY - BILATERAL SCREENING REASON FOR EXAM: Female, 71 years old. Routine annual screening examination. PERTINENT HISTORY: Non-contributory. TECHNIQUE: Digital bilateral breast carlton (3D mammographic acquisition) in the CC and MLO projections. 2-D mediolateral oblique (MLO) and craniocaudad (CC) views of both breasts were obtained. CAD: Full Field Digital Mammography with Computer Added Detection was performed. COMPARISON: Comparison is made with prior study 05/20/2021 and 05/17/2020. FINDINGS: Breast Composition: There are scattered areas of fibroglandular density. There are no dominant masses or suspicious calcifications. No other significant abnormalities are identified. There has been no significant change since the prior study. BI/SCRN MAMM (CAD)W/CARLTON BILAT IMPRESSION: Stable bilateral screening mammogram. Yearly follow-up mammogram recommended. (A) ASSESSMENT CATEGORY: BIRADS Category 1: Negative. A letter regarding these results will be sent to the patient by the facility within 30 days. Approximately 10% of breast cancers are not detected by mammography. A normal mammogram should not delay biopsy of a clinically suspicious abnormality. [id number] Electronically Signed: Yassine Chance MD at 9:35 EDT ,
== END | disposition home or self-care (01) ==
LOC: OPBI 07:11
PROVIDERS: PCP Family Medicine Geriatric Medicine; Visit Provider Family Medicine Geriatric Medicine
DX: Z12.31 Encounter for screening mammogram for malignant neoplasm of breast (principal)
CPT/HCPCS: 77063; 77067

== ENCOUNTER → 2022-05-28 | Outpatient (CLI) | payer MEDICARE, SELFPAY | END | disposition home or self-care (01) | LOC: LABSPEC 14:57 | PROVIDERS: PCP Family Medicine Geriatric Medicine; Visit Provider Obstetrics & Gynecology | DX: N39.0 Urinary tract infection, site not specified (principal) | CPT/HCPCS: 87086 ==

== ENCOUNTER → 2022-10-12 | Outpatient (CLI) | payer MEDICARE, SELFPAY ==
[2022-10-12 13:10] LABS: Absolute Lymphocyte Count 1.42 X10^3/uL (0.83-4.51); Absolute Neutrophil Count 9.5 X10^3/uL (2.0-7.7); Basophil# 0.06 X10^3/uL; Basophil% 0.5 % (0-1); Eosinophil# 0.03 X10^3/uL; Eosinophils% 0.3 % (0-5); Hematocrit 45.9 % (37-47); Lymphocyte # 1.42 X10^3/ul (0.83-4.51); Lymphocyte % 12.1 % (19-41); Mean Corp Hgb Conc 32.7 g/dL (32-36); Mean Corpuscular Hgb 29.8 pg (27.0-32.0); Mean Corpuscular Volume 91.3 fL (81-99); Mean Platelet Vol. 9.6 fl (6.2-12.0); Monocyte# 0.55 X10^3/uL; Monocyte% 4.7 % (0-10); NRBC Flagged by Analyzer 0 % (0-5); Neutrophil # 9.51 X10^3/uL (2.7-7.7); Neutrophil % 81.4 % (47-70); Platelet Count 375 K/mm3 (150-450); RBC Distribution Width CV 12.2 % (11.6-14.6); RBC Distribution Width SD 40.7 fl (35.1-43.9); Red Blood Count 5.03 M/mm3 (4.2-5.4); White Blood Count 11.7 K/mm3 (4.4-11.0)
[2022-10-12 13:27] LABS: Vitamin D,25 Hydroxy 24.1 ng/mL
[2022-10-12 13:45] LABS: ALB/GLOB Ratio 0.8 RATIO (0.9-2.4); AST(SGOT) 15 U/L (15-37); Alanine Aminotransfer ALT/SGPT 32 U/L (13-56); Albumin, Serum 3.4 g/dL (3.2-5.0); Alkaline Phosphatase 68 U/L (45-117); Anion Gap 11 (5-15); BUN 17 mg/dL (7-18); BUN/Creat Ratio 24.1 RATIO (10-20); Chloride 102 mmol/L (98-107); EST Glomerular Filtration Rate 86 mL/min (>60); Est Glom Filt Rate - Afr Amer 104 mL/min (>60); Glucose 92 mg/dL (74-106); Potassium 3.8 mmol/L (3.5-5.1); Protein, Total 7.4 g/dL (6.4-8.2); Sodium Level 137 mmol/L (136-145); Thyroid Stim Hormone (TSH) 2.12 uIU/mL (0.358-3.74)
== END | disposition home or self-care (01) ==
LOC: POLAB3 09:31
PROVIDERS: PCP Family Medicine Geriatric Medicine; Visit Provider Family Medicine Geriatric Medicine
DX: E55.9 Vitamin D deficiency, unspecified (principal); R53.83 Other fatigue
CPT/HCPCS: 36415; 80053; 82306; 84443; 85025

== ENCOUNTER 2023-02-13 08:50 | Emergency (ER) | payer MEDICARE, SELFPAY ==
[2023-02-13 08:51] VITALS: BP 163/80; PULSE 69; RESP 16; TEMP 35.5; O2SAT 96; BMI 29.7
--- NOTE | 2023-02-13 09:02 | EX.ED.VISEXT ---
HPI History of Present Illness Chief Complaint: Bite Detail of Chief Complaint: Insect bite left thumb Informant: patient Narrative Narrative: Patient presents the emergency department with concern for a bite to her left thumb that occurred yesterday morning around 6 AM. Patient states that she was put in some shoes on when she felt a sudden sharp stinging sensation to the dorsum of her left thumb just above her fingernail. Patient later in the day saw a wasp in the house and she is not sure if she was stung by a wasp possibly. She did well throughout the day and then started having increased pain and swelling last evening. She was seen at urgent care today and was referred to the emergency department for evaluation. She denies lip or tongue swelling or difficulty breathing. Patient is right-hand dominant. ROS ROS ED Review of Systems ROS Unobtainable: other Constitutional Constitutional ED: Reports lethargy; Denies chills, fever(s), sweats or weight loss Eyes Eyes: Denies blurry vision, change in vision or diplopia ENT ENT ED: Denies rhinorrhea or sore throat Cardiovascular Cardiovascular: Denies chest pain, orthopnea or racing heartbeat Respiratory/Chest Respiratory/Chest: Denies cough, dyspnea, dyspnea on exertion, orthopnea or sputum Gastrointestinal Gastrointestinal: Denies abdominal pain, diarrhea, nausea or vomiting Genitourinary Genitourinary ED: Denies dysuria, hematuria or urinary frequency Musculoskeletal Musculoskeletal: Reports other Details: Pain and redness and swelling to left thumb and left arm ; Denies arthralgias, back pain, myalgias or neck pain Integumentary Denies abscess, Abrasions or rash Neurologic Neurologic: Denies headache(s) or weakness Psychiatric Psychiatric: Denies anxiety, depression or suicidal thoughts Endocrine Endocrinology: Denies polydipsia, polyphagia or polyuria Hematologic/Lymphatic Hematologic/Lymphatic: Denies easy bleeding, easy bruising or lymphadenopathy Allergic/Immunologic Allergic/Immunologic ED: Denies mouth swelling, tongue swelling or urticaria [facility] Medical History (Updated 02/13/23 @ 09:[address] Paulina Watts, ) Cardiac dysrhythmia, unspecified Essential hypertension Fatigue HTN (hypertension) Nonrheumatic mitral (valve) insufficiency Nonrheumatic mitral (valve) prolapse Palpitations Premature atrial contractions Premature ventricular contractions (PVCs) (VPCs) Pure hypercholesterolemia SOB (shortness of breath) Wasp sting Home Medications aspirin 81 mg tablet,delayed release (Adult Low Dose Aspirin) 81 mg PO QDAY 10/22/17 [History Last Taken Unknown] bisoprolol 5 mg-hydrochlorothiazide 6.25 mg tablet 1 tab PO BID 10/22/17 [History Last Taken Unknown] pravastatin 20 mg tablet 20 mg PO QDAY 10/22/17 [History Last Taken Unknown] nirmatrelvir 300 mg (150 mg x2)-ritonavir 100 mg tablet,dose pack(EUA) (Paxlovid) See Rx Instructions PO .COMPLEX #30 tabs 08/28/22 [Rx Last Taken Unknown] cephalexin 500 mg capsule 500 mg PO Q6 #40 CAPSULES 02/13/23 [Rx Last Taken Unknown] prednisone 20 mg tablet 20 mg PO BID #10 tabs 02/13/23 [Rx Last Taken Unknown] Allergy/AdvReac Type Severity Reaction Status Date / Time No Known Allergies Allergy Verified 02/13/23 08:53 Family History Father , age 52 CAD (coronary artery disease) Myocardial infarction Mother CAD (coronary artery disease) Brother , age 71 Cancer basal cell carcinoma, from follicular lymphoma at age 71 Brother Colon cancer Social History Smoking Status: Never smoker alcohol intake: never substance use type: does not use caffeine: No what type of physical activity do you participate in: walking frequency: 5-6 times per week duration: 45-60 minutes/day seatbelt use: always do you feel safe at home: Yes EXAM Physical Exam Const Vital Signs: 02/13/23 08:51 Temperature 96 F L Temperature Source Temporal Pulse Rate 69 Respiratory Rate 16 Blood Pressure 163/80 H Blood Pressure Mean 107 Pulse Ox 96 Oxygen Delivery Method Room Air Positive well nourished and well developed General Appearance ED: well developed and NAD HEENT Reports TM's clear and moist mucous membranes normocephalic and atraumatic; Negative for trauma or tenderness Tympanic Membrane ED: Yes TM's clear Eyes PERRL and EOMs intact bilaterally General Eye ED: Negative for pale conjunctiva or scleral icterus Neck no lymphadenopathy, supple and no JVD General: Negative for tenderness Chest Wall inspection of chest normal and palpation of chest normal Chest: Negative for tenderness Resp normal respiratory effort and clear to auscultation bilaterally Effort and Inspection: Negative for respiratory distress or pain with movement Auscultation: Negative for rhonchi, wheezes or diminished lung sounds Cardio regular rate, regular rhythm, S1 normal heart sound, S2 normal heart sound and no murmurs Peripheral Pulses: pulses 2+ throughout GI normal to inspection, nondistended, normoactive bowel sounds, soft to palpation, non-tender, non-distended and no masses Back/Spine no CVA tenderness and no thoracic nor lumbar tenderness Extremity Extremity Narrative: Left upper extremity-patient does have some ecchymosis and erythema proximal to the nail of the left thumb with small vesicles noted. She has diffuse edema of the dorsum of the hand and onto the forearm with some faint erythema noted. She is neurovascularly intact. General Extremety ED: Negative for edema General Extremity: Negative for edema Neuro oriented x3, CN's II-XII intact bilaterally, no sensory deficits noted and gait normal Sensorium / Orientation: awake, alert, oriented to person, oriented to place and oriented to time Motor Exam: strength 5/5 throughout and strength abnormal Psych mental status grossly normal Skin no rashes or lesions noted and no wounds MDM MDM MDM Narrative Medical decision making narrative: Patient presents with a possible insect bite to the left thumb and now with edema to the dorsum of the hand and forearm. She did describe significant itching. I suspect she may have had an insect bite causing local allergic reaction but concerned about possibility of developing a cellulitis. She has no fever. I do not feel lab work is indicated. I feel she can be treated with p.o. antibiotics as well as prednisone. Patient to follow-up with her primary care physician within next 2 to 3 days. She is advised to return if increasing pain, redness, swelling, or condition worsening way. Discharge Plan Triage Chief Complaint: Bite ED Provider: Paulina Watts Dx/Rx/DC Orders Clinical Impression: Infected insect bite Instructions: ED Insect Sting/Bite, Infected Prescriptions: New cephalexin [cephalexin] 500 mg capsule 500 mg PO Q6 Qty: 40 0RF prednisone 20 mg tablet 20 mg PO BID Qty: 10 0RF No Action bisoprolol-hydrochlorothiazide 5-6.25 mg tablet 1 tab PO BID pravastatin 20 mg tablet 20 mg PO QDAY aspirin [Adult Low Dose Aspirin] 81 mg tablet,delayed release (DR/EC) 81 mg PO QDAY Paxlovid (EUA) 300 mg (150 mg x 2)-100 mg tablets,dose pack See Rx Instructions PO .COMPLEX Qty: 30 0RF Rx Instructions: take TWO 150 mg tablets of nirmatrelvir with ONE 100 mg tablet of ritonavir twice daily for 5 days PO Primary Care Provider: Lennox Babcock Chi Referrals: Lennox Babcock Chi, MD [Primary Care Provider] - Disposition Disposition: Home, Self Care
[2023-02-13] MEDS: Cephalexin 250 MG Capsule 500 MG PO (09:12)
[2023-02-13] MEDS: predniSONE 20 MG Tablet 40 MG PO (09:13)
== END 2023-02-13 09:27 | disposition home or self-care (01) ==
LOC: ED 09:21
PROVIDERS: Emergency Provider Emergency Medicine; PCP Family Medicine Geriatric Medicine; Visit Provider Emergency Medicine
DX: S61.052A Open bite of left thumb without damage to nail, initial encounter (principal); X58.XXXA Exposure to other specified factors, initial encounter
CPT/HCPCS: 99283

== ENCOUNTER → 2023-04-22 | Outpatient (CLI) | payer MEDICARE, SELFPAY ==
[2023-04-22 12:37] LABS: Absolute Lymphocyte Count 1.21 X10^3/uL (0.83-4.51); Absolute Neutrophil Count 3.8 X10^3/uL (2.0-7.7); Basophil# 0.08 X10^3/uL; Basophil% 1.4 % (0-1); Eosinophil# 0.13 X10^3/uL; Eosinophils% 2.2 % (0-5); Hematocrit 44.3 % (37-47); Hemoglobin 14.5 g/dL (12.0-15.0); Lymphocyte # 1.21 X10^3/ul (0.83-4.51); Lymphocyte % 20.8 % (19-41); Mean Corp Hgb Conc 32.7 g/dL (32-36); Mean Corpuscular Hgb 29.5 pg (27.0-32.0); Monocyte# 0.55 X10^3/uL; Monocyte% 9.5 % (0-10); NRBC Flagged by Analyzer 0 % (0-5); Neutrophil # 3.83 X10^3/uL (2.7-7.7); Neutrophil % 65.8 % (47-70); Platelet Count 340 K/mm3 (150-450); RBC Distribution Width CV 11.8 % (11.6-14.6); RBC Distribution Width SD 38.4 fl (35.1-43.9); Red Blood Count 4.92 M/mm3 (4.2-5.4); White Blood Count 5.8 K/mm3 (4.4-11.0)
[2023-04-22 13:04] LABS: Vitamin D,25 Hydroxy 41.8 ng/mL
[2023-04-22 13:56] LABS: ALB/GLOB Ratio 0.9 RATIO (0.9-2.4); AST(SGOT) 17 U/L (15-37); Alanine Aminotransfer ALT/SGPT 25 U/L (13-56); Albumin, Serum 3.6 g/dL (3.2-5.0); Alkaline Phosphatase 67 U/L (45-117); Anion Gap 9 (5-15); BUN 16 mg/dL (7-18); BUN/Creat Ratio 21.9 RATIO (10-20); Calcium,Total 9.3 mg/dL (8.5-10.1); Chloride 105 mmol/L (98-107); Creatinine, Serum 0.73 mg/dL (0.55-1.02); EST Glomerular Filtration Rate 82 mL/min (>60); Est Glom Filt Rate - Afr Amer 100 mL/min (>60); Globulin 3.8 g/dL (2.2-4.2); Glucose 106 mg/dL (74-106); Protein, Total 7.4 g/dL (6.4-8.2); Sodium Level 138 mmol/L (136-145); Thyroid Stim Hormone (TSH) 2.11 uIU/mL (0.358-3.74)
== END | disposition home or self-care (01) ==
PROVIDERS: PCP Family Medicine Geriatric Medicine; Visit Provider Family Medicine Geriatric Medicine
DX: I10 Essential (primary) hypertension (principal); E55.9 Vitamin D deficiency, unspecified
CPT/HCPCS: 36415; 80053; 82306; 84443; 85025

== ENCOUNTER → 2023-05-25 | Outpatient (CLI) | payer MEDICARE, SELFPAY | END | disposition home or self-care (01) | LOC: PSN 07:10 | PROVIDERS: PCP Family Medicine Geriatric Medicine; Referring Provider Family Medicine Geriatric Medicine; Visit Provider Family Medicine Geriatric Medicine | DX: R68.83 Chills (without fever) (principal) | CPT/HCPCS: 87635; 87804; 87807; C9803 ==

== ENCOUNTER → 2023-06-01 | Outpatient (CLI) | payer MEDICARE, SELFPAY ==
--- NOTE | 2023-06-01 13:21 | BI_ITS ---
MAMMOGRAPHY - BILATERAL SCREENING REASON FOR EXAM: Female, 72 years old. Routine annual screening examination. PERTINENT HISTORY: Non-contributory. TECHNIQUE: Digital bilateral breast carlton (3D mammographic acquisition) in the CC and MLO projections. 2-D mediolateral oblique (MLO) and craniocaudad (CC) views of both breasts were obtained. CAD: Full Field Digital Mammography with Computer Added Detection was performed. COMPARISON: Comparison is made with prior study dated May 21, 2022 and May 20, 2021. FINDINGS: Breast Composition: There are scattered areas of fibroglandular density. There are no dominant masses or suspicious calcifications. No other significant abnormalities are identified. There has been no significant change since the prior study. BI/SCRN MAMM (CAD)W/CARLTON BILAT IMPRESSION: Stable bilateral screening mammogram. Yearly follow-up mammogram recommended. (A) ASSESSMENT CATEGORY: BIRADS Category 1: Negative. A letter regarding these results will be sent to the patient by the facility within 30 days. Approximately 10% of breast cancers are not detected by mammography. A normal mammogram should not delay biopsy of a clinically suspicious abnormality. [id number] Electronically Signed: Yassine Chance MD at 10:32 EDT ,
--- NOTE | 2023-06-01 13:23 | BD_ITS ---
STUDY: DUAL ENERGY X-RAY ABSORPTIOMETRY / DXA REASON FOR EXAM: Female, 72 years old. [id number] TECHNIQUE: Bone Mineral Density (BMD) measurements of lumbar spine and bilateral hips were obtained. COMPARISON: Comparison is made with prior study dated May 20, 2021. FINDINGS: Lumbar Spine (L1-L4): g/cm2 (0.907) / T-score (-1.2) / Z-score (1.2) Findings are suggestive of osteopenia with a low fracture risk. Left Femur Total: g/cm2 (1.051) / T-score (0.9) / Z-score (2.7) Left Femoral Neck: g/cm2 (0.883) / T-score (0.3) / Z-score (2.4) Right Femur Total: g/cm2 (1.009) / T-score (0.5) / Z-score (2.3) Right Femoral Neck: g/cm2 (0.851) / T-score (0.0) / Z-score (2.1) The T-Scores on the most recent prior examination were: Lumbar Spine (L1-L4): There has been improvement of bone density since the previous examination. Left Femur Total: which represents an improvement of 6.5%. Right Femur Total: which represents a worsening of 1.9%. BD/Dexa Bone Density Study IMPRESSION: The patient is considered osteopenic as outlined below according to World Vargas Organization (WHO) criteria with a low fracture risk. There has been improvement of bone density since the previous examination. Reference Information: The T-score is the number of standard deviations above or below the standard which is normal for young adults at their peak bone mineral density. The World Health Organization (WHO) interprets the T-scores as follows: Above -1 Normal bone density Between -1 and -2.5 Osteopenia Equal to / or below -2.5 Osteoporosis As a practical clinical guideline, osteopenia may be graded as follows: Mild -1 through -1.5 Moderate -1.6 through -2.0 Severe -2.1 through -2.4 The Z-score is the number of standard deviations above or below age-matched controls. A Z-score of less than -1.5 would be considered abnormal. References: 1. NIH Osteoporosis and Related Bone Diseases www osteo.org 2. International Society for Clinical Densitometry www iscd.org 3. National Osteoporosis Foundation www nof.org Electronically Signed: Yassine Chance MD at 14:44 EDT ,
== END | disposition home or self-care (01) ==
LOC: OPBD 13:18
PROVIDERS: PCP Family Medicine Geriatric Medicine; Referring Provider Family Medicine Geriatric Medicine; Visit Provider Family Medicine Geriatric Medicine
DX: Z78.0 Asymptomatic menopausal state (principal); Z12.31 Encounter for screening mammogram for malignant neoplasm of breast
CPT/HCPCS: 77063; 77067; 77080

== ENCOUNTER → 2023-10-19 | Outpatient (CLI) | payer MEDICARE, SELFPAY ==
[2023-10-19 16:40] LABS: Absolute Lymphocyte Count 1.33 X10^3/uL (0.83-4.51); Absolute Neutrophil Count 7.7 X10^3/uL (2.0-7.7); Basophil# 0.07 X10^3/uL; Basophil% 0.7 % (0-1); Hematocrit 45.4 % (37-47); Lymphocyte # 1.33 X10^3/ul (0.83-4.51); Lymphocyte % 13.2 % (19-41); Mean Corpuscular Hgb 29.4 pg (27.0-32.0); Mean Platelet Vol. 9.8 fl (6.2-12.0); Monocyte# 0.93 X10^3/uL; Monocyte% 9.2 % (0-10); NRBC Flagged by Analyzer 0 % (0-5); Neutrophil # 7.66 X10^3/uL (2.7-7.7); Neutrophil % 75.7 % (47-70); Platelet Count 330 K/mm3 (150-450); RBC Distribution Width CV 11.7 % (11.6-14.6); RBC Distribution Width SD 38.2 fl (35.1-43.9); White Blood Count 10.1 K/mm3 (4.4-11.0)
[2023-10-19 16:57] LABS: Vitamin D,25 Hydroxy 33.7 ng/mL
[2023-10-19 17:06] LABS: AST(SGOT) 24 U/L (15-37); Alanine Aminotransfer ALT/SGPT 28 U/L (13-56); Albumin, Serum 3.8 g/dL (3.2-5.0); Alkaline Phosphatase 74 U/L (45-117); Anion Gap 7 (5-15); BUN 14 mg/dL (7-18); BUN/Creat Ratio 17.8 RATIO (10-20); Chloride 105 mmol/L (98-107); Creatinine, Serum 0.79 mg/dL (0.55-1.02); EST Glomerular Filtration Rate 76 mL/min (>60); Est Glom Filt Rate - Afr Amer 92 mL/min (>60); Globulin 3.8 g/dL (2.2-4.2); Glucose 116 mg/dL (74-106); Potassium 3.5 mmol/L (3.5-5.1); Protein, Total 7.6 g/dL (6.4-8.2); Sodium Level 138 mmol/L (136-145); Thyroid Stim Hormone (TSH) 1.76 uIU/mL (0.358-3.74)
--- OUTSIDE RECORDS SUMMARY | 2023-10-19 17:41 | XMS RPT_ITS | CCD ---
Author Name Unknown Address [address] [place] [address] Organization [facility] Care Team Providers Care Youth Teacher Name Role Phone Laura RODGERS, Estela Quiñones Unavailable [phone] Urban Molina Unavailable Unavailable Christie Bruno Unavailable Unavailable Christie Bruno Unavailable Unavailable Medications Completed/Discontinued Medications Medication Drug Class(es) Dates Sig (Normalized) Sig (Original) acetaminophen / HYDROcodone (8 sources) Opioid Agonist Start: 04-29-2011 VICODIN 5-500 MG TABS one to two tabs four times a day as needed for pain HYDROCODONE-ACETAMI NOPHEN [id number] Christos Medrano MD Problems Active Problems Problem Classification Problem Date Documented Da te Episodic/Chronic Cardiac dysrhythmias (8 sources) Cardiac arrhythmia, unspecified; Translations: [Ventricular premature beats] Onset: 02-28-2014 02-28-2014 Chronic Disorders of lipid metabolism (4 sources) Hyperlipidemia; Translations: [Hyperlipidemia, unspecified] Onset: 03-01-2014 03-01-2014 Chronic Essential hypertension (4 sources) Hypertensive disorder; Translations: [Essential (primary) hypertension] Onset: 02-28-2014 02-28-2014 Chronic Heart valve disorders (8 sources) Nonrheumatic mitral (valve) insufficiency; Translations: [Nonrheumatic mitral (valve) prolapse] Onset: 05-29-2015 05-29-2015 Chronic Past or Other Problems Problem Classification Problem Date Documented Da te Episodic/Chronic Cardiac dysrhythmias (4 sources) Palpitations; Translations: [Palpitations] Onset: 02-28-2014 02-28-2014 Episodic Malaise and fatigue (4 sources) Fatigue; Translations: [Other fatigue] Onset: 02-28-2014 02-28-2014 Episodic Neoplasms of unspecified nature or uncertain behavior (20 sources) Neoplasm of uncertain behavior of skin; Translations: [Neoplasm of uncertain behavior of skin] Onset: 04-21-2011 Resolved: 02-28-2014 03-13-2011 Episodic Other and unspecified benign neoplasm (16 sources) Hemangioma of skin and subcutaneous tissue; Translations: [Other benign neoplasm of skin of trunk] Resolved: 02-28-2014 02-28-2014 Episodic Other and unspecified benign neoplasm (4 sources) Other benign neoplasm of skin of trunk; Translations: [Other benign neoplasm of skin of trunk] Resolved: 02-28-2014 03-13-2011 Episodic Other and unspecified benign neoplasm (4 sources) Benign neoplasm of skin of other and unspecified parts of face; Translations: [Benign neoplasm of skin of other and unspecified parts of face] Resolved: 02-28-2014 03-13-2011 Episodic Other lower respiratory disease (4 sources) Dyspnea; Translations: [Shortness of breath] Onset: 02-28-2014 02-28-2014 Episodic Other nutritional; endocrine; and metabolic disorders (6 sources) Body mass index (BMI) 29.0-29.9, adult; Translations: [Body mass index (BMI) 27.0-27.9, adult] Onset: 05-29-2015 Resolved: 03-22-2017 03-22-2017 Episodic Other nutritional; endocrine; and metabolic disorders (4 sources) Body mass index (BMI) 27.0-27.9, adult; Translations: [Body mass index (BMI) 27.0-27.9, adult] Onset: 05-29-2015 Resolved: 03-22-2017 03-22-2017 Episodic Residual codes; unclassified (4 sources) Family history of malignant neoplasm of skin; Translations: [Family history of malignant neoplasm of other organs or systems] Onset: 04-21-2011 Resolved: 02-28-2014 04-24-2011 Episodic Unclassified (8 sources) Family history of ischemic heart disease and other diseases of the circulatory system; Translations: [Family history of malignant neoplasm of skin] Onset: 04-21-2011 Resolved: 02-28-2014 03-01-2014 Episodic Results Test Name Value Interpretation Reference Range Facil ity Vital Signs Date Time Vital Sign Value Performing Clinician David cortes 03-22-2017 13:03-0400 BMI (Body Mass Index) 29.01 kg/m2 Christie [facility] Work Phone: 03-22-2017 13:03-0400 BP Diastolic 72 mm[Hg] Christie Martgeno [facility] Work Phone: 03-22-2017 13:03-0400 BP Systolic 122 mm[Hg] Christie Martchuyitay [facility] Work Phone: 03-22-2017 13:03-0400 Height 171.45 cm Christie Damion [facility] Work Phone: 03-22-2017 13:03-0400 Pulse (Heart Rate) 64 /min Christie Anna Mariey [facility] Work Phone: 03-22-2017 13:03-0400 Respiratory Rate 16 /min Christie Damion [facility] Work Phone: 03-22-2017 13:03-0400 Weight 85.28 kg Christiestephanie [facility] Work Phone: 03-22-2017 13:03-0400 Weight 85.27 kg Christiestephanie [facility] Work Phone: 06-04-2016 13:50-0400 Heart rate 63 /min Christiestephanie [facility] Work Phone: 06-04-2016 13:39-0400 BMI (Body Mass Index) 27.8 kg/m2 Urban [facility] Work Phone: 06-04-2016 13:39-0400 BP Diastolic 80 mm[Hg] Harumi DeFinis [facility] Work Phone: 06-04-2016 13:39-0400 BP Systolic 124 mm[Hg] Harumi DeFinis [facility] Work Phone: 06-04-2016 13:39-0400 BSA (Body Surface Area) 1.95 m2 Harumi DeFinis [facility] Work Phone: 06-04-2016 13:39-0400 Pulse (Heart Rate) 63 /min Santiumi DeFinis [facility] Work Phone: 06-04-2016 13:39-0400 Respiratory Rate 18 /min Urban [facility] Work Phone: 06-04-2016 13:39-0400 Weight 81.74 kg [facility] Work Phone: 11-20-2011 13:14-0500 Body Temperature 98 [degF] [facility] Work Phone: 04-21-2011 10:39-0400 Height 171.45 cm [facility] Work Phone: 03-13-2011 15:37-0400 Pulse Oximetry 98 % [facility] Work Phone: Procedures Date Procedure Procedure Detail Performing Clinician Start: 03-22-2017 End: 03-22-2017 Dietary management education, guidance, and counseling Christie Damion Start: 03-22-2017 End: 04-13-2017 Echocardiography Emir White MD Start: 03-22-2017 End: 03-22-2017 Follow Up Appt 6 months Emir White MD Start: 03-22-2017 End: 03-22-2017 MMM Emir White MD Start: 06-04-2016 End: 06-04-2016 Follow Up Appt 9 months Estela jung PA-C Work Phone: Start: 06-04-2016 End: 06-04-2016 PFM Estela Lucas PA-C Work Phone: Start: 12-04-2015 End: 12-04-2015 Follow Up Appt 6 months Emir White MD Start: 12-04-2015 End: 12-04-2015 MMElliot White MD Start: 05-29-2015 End: 05-30-2015 Documentation of current medications Estela Lucas PA-C Work Phone: Start: 05-29-2015 End: 05-29-2015 Electrocardiogram, complete Estela Streeter PA-C Work Phone: Start: 05-29-2015 End: 05-29-2015 Follow Up Appt 6 months Estela jung PA-C Work Phone: Start: 05-29-2015 End: 05-29-2015 PFM Estela Lucas PA-C Work Phone: Start: 11-30-2014 End: 12-01-2014 Documentation of current medications Emir White MD Start: 11-30-2014 End: 11-30-2014 Follow Up Appt 6 months Emir White MD Start: 11-30-2014 End: 11-30-2014 MMElliot White MD Start: 04-27-2014 End: 04-27-2014 Follow Up Appt 6 months Estela jung PA-C Work Phone: Start: 04-27-2014 End: 04-27-2014 PF Estela Lucas PA-C Work Phone: Start: 03-01-2014 End: 04-12-2014 24 hour holter monitor Emir White MD Start: 03-01-2014 End: 04-12-2014 Chest x-ray Emir White MD Start: 03-01-2014 End: 04-12-2014 Echocardiography Emir White MD Start: 03-01-2014 End: 03-01-2014 Electrocardiogram, complete Emir james MD Start: 03-01-2014 End: 03-01-2014 Follow Up Appt 6 weeks Emir White MD Start: 03-01-2014 End: 03-01-2014 MMM Emir White MD Start: 03-01-2014 End: 04-12-2014 Nuclear stress test -exercise Emir shay MD Start: 03-01-2014 End: 03-01-2014 Thyroid stimulating hormone (TSH) Emir White MD Start: 03-01-2014 End: 03-01-2014 Thyroxine (T4) Emir White MD Plan of Treatment Date Care Activity Detail Author Start: 10-18-2017 End: 10-18-2017 Appointment Appointment [facility] Work Phone: Start: 03-22-2017 End: 03-22-2017 Appointment Appointment [facility] Work Phone: Start: 03-22-2017 End: 03-22-2017 Echocardiography Echocardiogram (complete) [facility] Work Phone: Start: 03-22-2017 End: 03-22-2017 Follow Up Appt 6 months Follow Up Appt 6 months [facility] Work Phone: Start: 03-22-2017 End: 03-22-2017 MMM MMM [facility] Work Phone: Start: 06-04-2016 End: 06-04-2016 Follow Up Appt 9 months Follow Up Appt 9 months [facility] Work Phone: Start: 06-04-2016 End: 06-04-2016 PFM PFM [facility] Work Phone: Start: 12-04-2015 End: 12-04-2015 Follow Up Appt 6 months Follow Up Appt 6 months [facility] Work Phone: Start: 12-04-2015 End: 12-04-2015 MMM MMM [facility] Work Phone: Start: 05-29-2015 End: 05-29-2015 Electrocardiogram, complete EKG (In office) [facility] Work Phone: Start: 05-29-2015 End: 05-29-2015 Follow Up Appt 6 months Follow Up Appt 6 months [facility] Work Phone: Start: 05-29-2015 End: 05-29-2015 PFM PFM [facility] Work Phone: Start: 11-30-2014 End: 11-30-2014 Follow Up Appt 6 months Follow Up Appt 6 months [facility] Work Phone: Start: 11-30-2014 End: 11-30-2014 MMM MMM [facility] Work Phone: Start: 04-27-2014 End: 04-27-2014 Follow Up Appt 6 months Follow Up Appt 6 months [facility] Work Phone: Start: 04-27-2014 End: 04-27-2014 PFM PFM [facility] Work Phone: Start: 03-01-2014 End: 03-01-2014 24 hour holter monitor 24 hour holter monitor [facility] Work Phone: Start: 03-01-2014 End: 04-12-2014 Chest x-ray X-Ray, Chest, PA & Lateral [facility] Work Phone: Start: 03-01-2014 End: 03-01-2014 Echocardiography Echocardiogram (complete) [facility] Work Phone: Start: 03-01-2014 End: 03-01-2014 Electrocardiogram, complete EKG (In office) [facility] Work Phone: Start: 03-01-2014 End: 03-01-2014 Follow Up Appt 6 weeks Follow Up Appt 6 weeks [facility] Work Phone: Start: 03-01-2014 End: 03-01-2014 MMM MMM [facility] Work Phone: Start: 03-01-2014 End: 03-01-2014 Nuclear stress test -exercise Nuclear stress test -exercise [facility] Work Phone: Start: 03-01-2014 End: 03-01-2014 Thyroid stimulating hormone (TSH) *TSH [facility] Work Phone: Start: 03-01-2014 End: 03-01-2014 Thyroxine (T4) *T4 (Total) [facility] Work Phone: Additional Source Comments FOR RECORDS PERTAINING TO PATIENTS WHO ARE OR HAVE BEEN ENROLLED IN A CHEMICAL DEPENDENCY/SUBSTANCEABUSE PROGRAM, SOME INFORMATION MAY BE OMITTED. This clinical summary was aggregated from multiple sources. Caution should be exercised in using it in the provision of clinical care. This summary normalizes information from multiple sources, and as a consequence, information in this document may materially change the coding, format and clinical context of patient data. In addition, data may be omitted in some cases. CLINICAL DECISIONS SHOULD BE BASED ON THE PRIMARY CLINICAL RECORDS. [employer] [facility]. provides no warranty or guarantee of the accuracy or completeness of information in this document.
== END | disposition home or self-care (01) ==
LOC: POLAB3 15:43
PROVIDERS: PCP Family Medicine Geriatric Medicine; Visit Provider Family Medicine Geriatric Medicine
DX: I10 Essential (primary) hypertension (principal); E55.9 Vitamin D deficiency, unspecified
CPT/HCPCS: 36415; 80053; 82306; 84443; 85025

== ENCOUNTER → 2023-10-20 | Outpatient (CLI) | payer MEDICARE, SELFPAY ==
--- OUTSIDE RECORDS SUMMARY | 2023-10-20 12:24 | XMS RPT_ITS | CCD ---
Author Name Unknown Address [address] [place] [address] Organization [facility] Care Team Providers Care Grinding Machine Operator Automatic Name Role Phone Laura RODGERS, Estela Quiñones Unavailable [phone] Urban Molina Unavailable Unavailable Christie Bruno Unavailable Unavailable Christie Bruno Unavailable Unavailable Medications Completed/Discontinued Medications Medication Drug Class(es) Dates Sig (Normalized) Sig (Original) acetaminophen / HYDROcodone (8 sources) Opioid Agonist Start: 04-29-2011 VICODIN 5-500 MG TABS one to two tabs four times a day as needed for pain HYDROCODONE-ACETAMI NOPHEN [id number] Christos Medrano MD Problems Active Problems Problem [...] 13:03-0400 BP Systolic 122 mm[Hg] Christie Martchuyitay [facility] Work Phone: 03-22-2017 13:03-0400 Height 171.45 cm Christie Damion [facility] Work Phone: 03-22-2017 13:03-0400 Pulse (Heart Rate) 64 /min Christie Anna Mariey [facility] Work Phone: 03-22-2017 13:03-0400 Respiratory [...] Pulse (Heart Rate) 63 /min Santiumi DeFinis [facility] Work Phone: 06-04-2016 13:39-0400 Respiratory Rate 18 /min Urban [facility] Work Phone: 06-04-2016 13:39-0400 Weight 81.74 kg [facility] Work Phone: 11-20-2011 13:14-0500 Body Temperature 98 [degF] [facility] Work Phone: 04-21-2011 10:39-0400 Height 171.45 cm [facility] Work Phone: 03-13-2011 15:37-0400 Pulse Oximetry 98 % [employer] Work Phone: Procedures Date Procedure [...] 04-27-2014 Follow Up Appt 6 months Estela ujng PA-C Work Phone: Start: 04-27-2014 End: 04-27-2014 PF Estela Lucas PA-C Work Phone: Start: 03-01-2014 End: 04-12-2014 24 hour holter monitor Emir White MD Start: 03-01-2014 End: 04-12-2014 Chest x-ray mEir White MD Start: 03-01-2014 End: 04-12-2014 Echocardiography [...] Author Start: 10-18-2017 End: 10-18-2017 Appointment Appointment [facility] Work Phone: Start: 03-22-2017 End: 03-22-2017 Appointment Appointment [facility] Work Phone: Start: 03-22-2017 End: 03-22-2017 Echocardiography Echocardiogram (complete) [facility] Work Phone: Start: 03-22-2017 End: 03-22-2017 Follow Up Appt 6 months Follow Up Appt 6 months [facility] Work Phone: Start: 03-22-2017 End: 03-22-2017 MMM MMM [facility] Work Phone: Start: 06-04-2016 End: 06-04-2016 Follow Up Appt 9 months Follow Up Appt 9 months [facility] Work Phone: Start: 06-04-2016 End: 06-04-2016 PFM PFM [facility] Work Phone: Start: 12-04-2015 End: 12-04-2015 Follow Up Appt 6 months Follow Up Appt 6 months [facility] Work Phone: Start: 12-04-2015 End: 12-04-2015 MMM MMM [facility] Work Phone: Start: 05-29-2015 End: [...] 6 months Follow Up Appt 6 months [facility] Work Phone: Start: 11-30-2014 [...] Chest x-ray X-Ray, Chest, PA & Lateral [facility] Work Phone: Start: 03-01-2014 End: 03-01-2014 Echocardiography Echocardiogram (complete) [facility] Work Phone: Start: 03-01-2014 End: 03-01-2014 Electrocardiogram, complete EKG (In office) [facility] Work Phone: Start: 03-01-2014 End: 03-01-2014 Follow Up Appt 6 weeks Follow Up Appt 6 weeks [facility] Work Phone: Start: 03-01-2014 End: 03-01-2014 MMM MMM [facility] Work Phone: Start: 03-01-2014 End: 03-01-2014 Nuclear stress test -exercise Nuclear stress test -exercise [facility] Work Phone: Start: 03-01-2014 End: 03-01-2014 Thyroid stimulating hormone (TSH) *TSH [facility] Work Phone: Start: 03-01-2014 End: 03-01-2014 Thyroxine (T4) *T4 (Total) [facility] Work Phone: Additional Source Comments FOR RECORDS [...] BE BASED ON THE PRIMARY CLINICAL RECORDS. [facility]. provides no warranty or guarantee of the accuracy or completeness of information in this document.
== END | disposition home or self-care (01) ==
PROVIDERS: PCP Family Medicine Geriatric Medicine; Referring Provider Family Medicine Geriatric Medicine; Visit Provider Family Medicine Geriatric Medicine
DX: R68.83 Chills (without fever) (principal); B97.4 Respiratory syncytial virus as the cause of diseases classified elsewhere
CPT/HCPCS: 87631

== ENCOUNTER → 2024-02-09 | Outpatient (CLI) | payer MEDICARE, SELFPAY | END | disposition home or self-care (01) | PROVIDERS: PCP Family Medicine Geriatric Medicine; Referring Provider Family Medicine Geriatric Medicine; Visit Provider Family Medicine Geriatric Medicine | DX: R68.83 Chills (without fever) (principal) | CPT/HCPCS: 87631 ==

== ENCOUNTER 2024-04-01 07:08 | Emergency (ER) | payer MEDICARE, SELFPAY ==
[2024-04-01 07:09] VITALS: BP 174/85; PULSE 66; RESP 16; TEMP 36; O2SAT 96; BMI 29.9
--- NOTE | 2024-04-01 07:28 | CT_ITS ---
INDICATION: RIB INJURY EXAMINATION: CT CHEST WITHOUT CONTRAST - CT Chest W/O Contrast Injection TECHNIQUE: Helically acquired images were obtained of the chest. The protocol utilizes one or more of the following dose reduction techniques: automated exposure control, adjustment of mA and/or kV according to patient size,and/or use of iterative reconstruction technique. IV Contrast dosage and agent: None. RADIATION DOSAGE (If Supplied By Facility): CTDIvol = ( 15.26 ) mGy, DLP = ( 732.44 ) mGycm COMPARISON: No relevant prior comparison study available FINDINGS: LUNGS, PLEURA AND LARGE AIRWAYS: There is minimal dependent atelectasis within the right lower lobe. No pleural effusion or thickening. No pneumothorax. THYROID: No thyroid lesions. HEART AND PERICARDIUM: Heart size is normal. No pericardial effusion. CORONARY ARTERIES: Coronary artery calcification is seen. VESSELS: Thoracic aorta is not dilated. There are few peripheral calcifications of the thoracic aorta. MEDIASTINUM AND PHUC: No mediastinal or hilar adenopathy. Esophagus is unremarkable. There is a small hiatal hernia. UPPER ABDOMEN: The limited images of the upper abdomen demonstrate gallstones within the gallbladder. There is partial visualization of a small fat-containing umbilical hernia. BONES: There are degenerative changes of thoracic and visualized cervical and lumbar spine. CT/Chest without Contrast IMPRESSION: Minimal right lower lobe dependent atelectasis. Atherosclerosis. Small hiatal hernia. Cholelithiasis. Small fat-containing umbilical hernia. Degenerative changes of the thoracic and visualized cervical and lumbar spine. Electronically Signed: Kylah Kendrick MD at 9:15 EDT ,
--- NOTE | 2024-04-01 07:31 | EX.ED.GENINJ ---
HPI History of Present Illness Chief Complaint: Fall Informant: patient Onset/Context/Timing Onset: Yesterday Narrative Narrative: 33-year-old female presents with left chest pain following a fall yesterday at approximately 1700 hrs. Patient states that she went to get up ready 1 morning shocurt got caught on attachment on the deck and she fell forward striking her left chest. She denies any other injuries. Patient denies any back pain. She denies any wrist or leg injuries. Patient denies hitting her head. She notes pain with movement and with touch in certain areas. She denies any dyspnea or hemoptysis. [facility] Medical History Wasp sting Pure hypercholesterolemia Essential hypertension Premature atrial contractions Nonrheumatic mitral (valve) prolapse Nonrheumatic mitral (valve) insufficiency Premature ventricular contractions (PVCs) (VPCs) Cardiac dysrhythmia, unspecified HTN (hypertension) Fatigue SOB (shortness of breath) Palpitations Home Medications ?Medication ?Instructions ?Recorded ?Last Taken ?Type aspirin 81 mg tablet,delayed 81 mg PO QDAY 10/22/17 Unknown History release (Adult Low Dose Aspirin) bisoprolol 5 1 tab PO BID 10/22/17 Unknown History mg-hydrochlorothiazide 6.25 mg tablet pravastatin 20 mg tablet 20 mg PO QDAY 10/22/17 Unknown History Allergy/AdvReac Type Severity Reaction Status Date / Time No Known Allergies Allergy Verified 04/01/24 07:09 Family History Father , age 52 CAD (coronary artery disease) Myocardial infarction Mother CAD (coronary artery disease) Brother , age 71 Cancer basal cell carcinoma, from follicular lymphoma at age 71 Brother Colon cancer Surgical History History of bilateral cataract extraction Social History Smoking Status: Never smoker alcohol intake: never substance use type: does not use caffeine: No what type of physical activity do you participate in: walking frequency: 5-6 times per week duration: 45-60 minutes/day seatbelt use: always do you feel safe at home: Yes ROS ROS ED Constitutional Constitutional ED: Denies chills, fever(s) or weight loss Eyes Eyes: Denies change in vision or diplopia ENT ENT ED: Denies ear pain, rhinorrhea or sore throat Cardiovascular Cardiovascular: Reports chest pain; Denies orthopnea, palpitations or racing heartbeat Respiratory/Chest Respiratory/Chest: Denies cough, dyspnea or orthopnea Gastrointestinal Gastrointestinal: Denies abdominal pain, diarrhea, nausea or vomiting Genitourinary Genitourinary ED: Denies dysuria, hematuria or urinary frequency Musculoskeletal Musculoskeletal: Denies arthralgias, back pain, myalgias or neck pain Integumentary Denies abscess or rash Neurologic Neurologic: Denies headache(s) or weakness Psychiatric Psychiatric: Denies anxiety, depression, suicidal ideation or suicidal thoughts Endocrine Endocrinology: Denies polydipsia, polyphagia or polyuria Allergic/Immunologic Allergic/Immunologic ED: Denies mouth swelling, tongue swelling or urticaria EXAM Physical Exam Const Vital Signs: 04/01/24 07:09 04/01/24 07:48 Temperature 96.8 F L Temperature Source Temporal Pulse Rate 66 Respiratory Rate 16 Respiratory Effort Normal Respiratory Pattern Normal Blood Pressure 174/85 H Blood Pressure Mean 114 Pulse Ox 96 Oxygen Delivery Method Room Air Positive well nourished and well developed General Appearance ED: well developed and NAD HEENT Reports normocephalic, head/scalp atraumatic and moist mucous membranes Eyes PERRL and EOMs intact bilaterally Neck no lymphadenopathy, supple and no JVD Chest Wall Chest Narrative: Patient has tenderness in the mid anterior to lateral left rib cage. No subcutaneous emphysema felt. No bony crepitance. Resp normal respiratory effort and clear to auscultation bilaterally Cardio regular rate, regular rhythm and no murmurs GI normal to inspection, nondistended, normoactive bowel sounds and non-tender Palpation: soft Back/Spine no CVA tenderness and normal ROM Extremity normal to inspection General Extremety ED: Negative for edema General Extremity: Negative for edema Neuro oriented x3 and CN's II-XII intact bilaterally Sensorium / Orientation: alert Motor Exam: strength 5/5 throughout Psych mental status grossly normal Mood & Affect: Negative for depressed or tearful Skin no rashes or lesions noted and no wounds MDM MDM MDM Narrative Medical decision making narrative: Differential diagnosis includes but not limited to pneumothorax pleural effusion rib fracture chest contusion pericardial effusion Noncontrasted chest CT does not demonstrate an obvious fracture. Incidental findings include cholelithiasis and hiatal hernia. Please see radiologist read for full details. Patient will be discharged home with supportive care. Follow-up as needed return if worsening or concerns. Patient is comfortable with this plan History & Record Review Discussion w/independent historian: Patient Radiography Diagnostic Testing: Clinical Impression(s) from Imaging Studies Chest CT 04/01/24 07:28 IMPRESSION: Minimal right lower lobe dependent atelectasis. Atherosclerosis. Small hiatal hernia. Cholelithiasis. Small fat-containing umbilical hernia. Degenerative changes of the thoracic and visualized cervical and lumbar spine. Electronically Signed: Kylah Kendrick MD at 9:15 EDT , Discharge Plan Triage Chief Complaint: Fall ED Provider: Gomez Jalloh Dx/Rx/DC Orders Clinical Impression: Fall, Chest wall contusion, Hernia, hiatal, Cholelithiasis Instructions: Gallstones Dc, ED Chest Wall Contusion, ED Hiatal Hernia Prescriptions: No Action bisoprolol-hydrochlorothiazide 5-6.25 mg tablet 1 tab PO BID pravastatin 20 mg tablet 20 mg PO QDAY aspirin [Adult Low Dose Aspirin] 81 mg tablet,delayed release (DR/EC) 81 mg PO QDAY Primary Care Provider: Lennox Babcock Chi Referrals: Lennox Babcock Chi, MD [Primary Care Provider] - As Needed Print Language: Italian Disposition Disposition: Home, Self Care Discharge Date/Time: 04/01/24 10:02
== END 2024-04-01 10:02 | disposition home or self-care (01) ==
PROVIDERS: Emergency Provider Emergency Medicine; PCP Family Medicine Geriatric Medicine; Visit Provider Emergency Medicine
DX: S20.20XA Contusion of thorax, unspecified, initial encounter (principal); K44.9 Diaphragmatic hernia without obstruction or gangrene; K80.20 Calculus of gallbladder without cholecystitis without obstruction; W19.XXXA Unspecified fall, initial encounter
CPT/HCPCS: 71250; 99282

== ENCOUNTER → 2024-04-25 | Outpatient (CLI) | payer MEDICARE, SELFPAY ==
[2024-04-25 15:05] LABS: Absolute Lymphocyte Count 1.35 X10^3/uL (0.83-4.51); Absolute Neutrophil Count 5.8 X10^3/uL (2.0-7.7); Basophil% 1.2 % (0-1); Eosinophils% 1.2 % (0-5); Hematocrit 44.8 % (37-47); Hemoglobin 14.7 g/dL (12.0-15.0); Lymphocyte # 1.35 X10^3/ul (0.83-4.51); Lymphocyte % 16.8 % (19-41); Mean Corp Hgb Conc 32.8 g/dL (32-36); Mean Corpuscular Hgb 29.3 pg (27.0-32.0); Mean Corpuscular Volume 89.2 fL (81-99); Mean Platelet Vol. 9.8 fl (6.2-12.0); Monocyte% 8.7 % (0-10); NRBC Flagged by Analyzer 0 % (0-5); Neutrophil # 5.76 X10^3/uL (2.7-7.7); Neutrophil % 71.6 % (47-70); Platelet Count 357 K/mm3 (150-450); RBC Distribution Width CV 12.1 % (11.6-14.6); RBC Distribution Width SD 39.8 fl (35.1-43.9); Red Blood Count 5.02 M/mm3 (4.2-5.4); White Blood Count 8.1 K/mm3 (4.4-11.0)
[2024-04-25 18:53] LABS: Vitamin D,25 Hydroxy 36.2 ng/mL
[2024-04-25 18:59] LABS: ALB/GLOB Ratio 0.9 RATIO (0.9-2.4); AST(SGOT) 18 U/L (15-37); Alanine Aminotransfer ALT/SGPT 21 U/L (13-56); Albumin, Serum 3.6 g/dL (3.2-5.0); Alkaline Phosphatase 87 U/L (45-117); Anion Gap 6 (5-15); BUN 16 mg/dL (7-18); BUN/Creat Ratio 19.1 RATIO (10-20); Calcium,Total 9.4 mg/dL (8.5-10.1); Chloride 106 mmol/L (98-107); Creatinine, Serum 0.84 mg/dL (0.55-1.02); EST Glomerular Filtration Rate 70 mL/min (>60); Est Glom Filt Rate - Afr Amer 85 mL/min (>60); Globulin 3.9 g/dL (2.2-4.2); Glucose 105 mg/dL (74-106); Potassium 4.1 mmol/L (3.5-5.1); Protein, Total 7.5 g/dL (6.4-8.2); Sodium Level 139 mmol/L (136-145); Thyroid Stim Hormone (TSH) 1.75 uIU/mL (0.358-3.74)
== END | disposition home or self-care (01) ==
LOC: LAB 12:10
PROVIDERS: PCP Family Medicine Geriatric Medicine; Referring Provider Family Medicine Geriatric Medicine; Visit Provider Family Medicine Geriatric Medicine
DX: I10 Essential (primary) hypertension (principal); E55.9 Vitamin D deficiency, unspecified
CPT/HCPCS: 36415; 80053; 82306; 84443; 85025

== ENCOUNTER → 2024-05-29 | Outpatient (CLI) | payer MEDICARE, SELFPAY | END | disposition home or self-care (01) | LOC: POLAB3 11:18 | PROVIDERS: PCP Family Medicine Geriatric Medicine; Visit Provider Family Medicine Geriatric Medicine | DX: R68.83 Chills (without fever) (principal) | CPT/HCPCS: 87631 ==

== ENCOUNTER → 2024-06-06 | Outpatient (CLI) | payer MEDICARE, SELFPAY ==
--- NOTE | 2024-06-06 07:29 | BI_ITS ---
MAMMOGRAPHY - BILATERAL SCREENING REASON FOR EXAM: Female, 73 years old. Routine annual screening examination. PERTINENT HISTORY: Non-contributory. TECHNIQUE: Digital bilateral breast carlton (3D mammographic acquisition) in the CC and MLO projections. 2-D mediolateral oblique (MLO) and craniocaudad (CC) views of both breasts were obtained. CAD: Full Field Digital Mammography with Computer Added Detection was performed. COMPARISON: Comparison is made with prior study of June 01, 2023 and May 21, 2022. FINDINGS: Breast Composition: There are scattered areas of fibroglandular density. There are no dominant masses or suspicious calcifications. No other significant abnormalities are identified. There has been no significant change since the prior study. BI/SCRN MAMM (CAD)W/CARLTON BILAT IMPRESSION: Stable bilateral screening mammogram. Yearly follow-up mammogram recommended. (A) ASSESSMENT CATEGORY: BIRADS Category 1: Negative. A letter regarding these results will be sent to the patient by the facility within 30 days. Approximately 10% of breast cancers are not detected by mammography. A normal mammogram should not delay biopsy of a clinically suspicious abnormality. [id number] Electronically Signed: Yassine Chance MD at 8:58 EDT ,
== END | disposition home or self-care (01) ==
PROVIDERS: PCP Family Medicine Geriatric Medicine; Referring Provider Family Medicine Geriatric Medicine; Visit Provider Family Medicine Geriatric Medicine
DX: Z12.31 Encounter for screening mammogram for malignant neoplasm of breast (principal)
CPT/HCPCS: 77063; 77067

== ENCOUNTER → 2024-06-08 | Outpatient (CLI) | payer MEDICARE, SELFPAY ==
--- NOTE | 2024-06-08 10:52 | RAD_ITS ---
INDICATION: SOB/WHEEZING EXAMINATION/TECHNIQUE: X-RAY - XR Chest 2 Views COMPARISON: March 01, 2014 FINDINGS: LINES/DEVICES: None. LUNGS: No consolidation, edema or effusion. No pneumothorax. MEDIASTINUM AND CARDIOVASCULAR STRUCTURES: Cardiac silhouette not enlarged. Central airways and mediastinal contour are unremarkable. BONES AND SOFT TISSUES: Degenerative vertebral changes. RAD/Chest PA and Lateral IMPRESSION: No radiographic evidence of acute cardiopulmonary disease. Electronically Signed: Jason Eaton DO at 17:03 EDT ,
[2024-06-08 11:21] LABS: Absolute Lymphocyte Count 1.89 X10^3/uL (0.83-4.51); Absolute Neutrophil Count 9.5 X10^3/uL (2.0-7.7); Basophil# 0.14 X10^3/uL; Basophil% 1.1 % (0-1); Eosinophil# 0.33 X10^3/uL; Eosinophils% 2.5 % (0-5); Hematocrit 44.1 % (37-47); Hemoglobin 14.2 g/dL (12.0-15.0); Lymphocyte # 1.89 X10^3/ul (0.83-4.51); Lymphocyte % 14.6 % (19-41); Mean Corp Hgb Conc 32.2 g/dL (32-36); Mean Corpuscular Hgb 29.2 pg (27.0-32.0); Mean Corpuscular Volume 90.7 fL (81-99); Mean Platelet Vol. 9.3 fl (6.2-12.0); Monocyte# 0.83 X10^3/uL; Monocyte% 6.4 % (0-10); NRBC Flagged by Analyzer 0 % (0-5); Neutrophil # 9.54 X10^3/uL (2.7-7.7); Neutrophil % 73.6 % (47-70); Platelet Count 394 K/mm3 (150-450); RBC Distribution Width CV 12.3 % (11.6-14.6); RBC Distribution Width SD 40.5 fl (35.1-43.9); Red Blood Count 4.86 M/mm3 (4.2-5.4)
[2024-06-08 11:44] LABS: BNP,B-Type NATRIURETIC PEPTIDE 13.6 pg/mL (0-100)
[2024-06-08 11:45] LABS: D-Dimer Quantitative (DVT/PE) 0.37 FEU/ug/m (0.27-0.49)
[2024-06-08 11:49] LABS: ALB/GLOB Ratio 0.8 RATIO (0.9-2.4); AST(SGOT) 18 U/L (15-37); Alanine Aminotransfer ALT/SGPT 30 U/L (13-56); Albumin, Serum 3.3 g/dL (3.2-5.0); Alkaline Phosphatase 65 U/L (45-117); Anion Gap 6 (5-15); BUN 21 mg/dL (7-18); BUN/Creat Ratio 25.6 RATIO (10-20); Calcium,Total 9.3 mg/dL (8.5-10.1); Chloride 106 mmol/L (98-107); Creatinine, Serum 0.82 mg/dL (0.55-1.02); EST Glomerular Filtration Rate 72 mL/min (>60); Est Glom Filt Rate - Afr Amer 87 mL/min (>60); Globulin 3.9 g/dL (2.2-4.2); Glucose 121 mg/dL (74-106); Potassium 3.7 mmol/L (3.5-5.1); Protein, Total 7.2 g/dL (6.4-8.2); Sodium Level 140 mmol/L (136-145)
== END | disposition home or self-care (01) ==
PROVIDERS: PCP Family Medicine Geriatric Medicine; Referring Provider Family Medicine Geriatric Medicine; Visit Provider Family Medicine Geriatric Medicine
DX: R06.02 Shortness of breath (principal); R06.2 Wheezing; I10 Essential (primary) hypertension; R09.02 Hypoxemia
CPT/HCPCS: 36415; 71046; 80053; 83880; 85025; 85379; 87631

== ENCOUNTER → 2024-06-12 | Outpatient (CLI) | payer MEDICARE, SELFPAY ==
--- NOTE | 2024-06-12 09:38 | CT_ITS ---
STUDY: CTA CHEST REASON FOR EXAM: Female, 73 years old. PLEURAL EFFUSION RADIATION DOSAGE (If Supplied By Facility): CTDIvol = ( 11.17 ) mGy, DLP = ( 472.21 ) mGycm TECHNIQUE: The examination was performed with the intravenous administration of IV 100mL Isovue-370. Post-processing of the angiographic images was performed, with multiplanar reformation and 3D reconstruction. The protocol utilizes one or more of the following dose reduction techniques: automated exposure control, adjustment of mA and/or kV according to patient size,and/or use of iterative reconstruction technique. COMPARISON: Noncontrast CT scan of the chest of 04/01/2024 FINDINGS: Normal enhancement of the main pulmonary artery and right and left pulmonary arteries. Normal enhancement of the bilateral peripheral pulmonary arteries. There is no demonstrated pulmonary embolism. There is atherosclerotic calcification of the aortic arch. There is no demonstrated aortic dissection. Normal heart and pericardium. There are mild calcifications of the coronary arteries. Normal mediastinum. Normal hilar regions. Normal visualized trachea and bronchi. The lungs are well expanded. There are no pulmonary infiltrates. There are no pleural effusions. Normal chest wall structures. There are degenerative changes of thoracic spine. Normal visualized upper abdomen. CT/CTA Chest W/WO Contrast IMPRESSION: 1. No evidence of pulmonary embolism or aortic dissection. 2. No acute pulmonary infiltrate, adenopathy or pleural effusions. Electronically Signed: Truong Mcdowell MD at 11:03 EDT ,
== END | disposition home or self-care (01) ==
PROVIDERS: PCP Family Medicine Geriatric Medicine; Referring Provider Family Medicine Geriatric Medicine; Visit Provider Family Medicine Geriatric Medicine
DX: J90 Pleural effusion, not elsewhere classified (principal)
CPT/HCPCS: 71275; Q9967

== ENCOUNTER → 2024-09-12 | Outpatient (CLI) | payer MEDICARE, SELFPAY ==
--- NOTE | 2024-09-12 12:54 | ECHOD_ITS ---
Reason For Study: MITRAL VALVE PROLAPSE Procedure This was a 2D Doppler, Color Flow transthoracic echocardiogram. The study was technically difficult. Exam performed in department. Left Ventricle Normal LV size. Left ventricular systolic function is normal. The left ventricular ejection fraction is 60 %. No regional wall motion abnormalities noted. Right Ventricle Normal RV size. Normal systolic function. Atria Normal left atrium. Normal right atrium. Mitral Valve Normal mitral valve. Tricuspid Valve Normal tricuspid valve. Aortic Valve Normal aortic valve. Pulmonic Valve Normal pulmonic valve. Great Vessels Normal aortic root. The pulmonary artery is normal size. Normal inferior vena cava. Pericardium/Pleural No pericardial effusion. MMode/2D Measurements & Calculations LVIDd: 3.3 cm IVSd: 1.2 cm LVOT diam: 1.9 cm LVIDs: 1.9 cm LVPWd: 1.0 cm LVOT area: 2.8 cm2 RVDd: 2.9 cm FS: 42.6 % asc Aorta Diam: 2.7 cm LAV(MOD-bp): 26.5 ml LVAd ap4: 23.8 cm2 LAV(MOD-bp) Indexed: 13.4 ml/m2 LVLd ap4: 7.4 cm LAV(MOD-sp2): 27.7 ml EDV(MOD-sp4): 63.3 ml LAV(MOD-sp4): 25.8 ml EDV(sp4-el): 65.3 ml LVAs ap4: 11.9 cm2 LVLs ap4: 6.1 cm ESV(MOD-sp4): 19.1 ml ESV(sp4-el): 19.7 ml EF(MOD-sp4): 69.8 % EF(sp4-el): 69.8 % LVAd ap2: 19.1 cm2 SV(MOD-sp4): 44.1 ml SV(MOD-sp2): 26.3 ml LVLd ap2: 7.4 cm SI(MOD-sp4): 22.3 ml/m2 SI(MOD-sp2): 13.3 ml/m2 EDV(MOD-sp2): 40.6 ml EDV(sp2-el): 41.8 ml LVAs ap2: 10.1 cm2 LVLs ap2: 6.5 cm ESV(MOD-sp2): 14.3 ml ESV(sp2-el): 13.5 ml EF(MOD-sp2): 64.8 % SV(sp4-el): 45.6 ml Ao sinus diam: 2.[address] Junction: 2.7 cm LA dimension(2D): 3.5 cm LA A4 area: 12.3 cm2 RA A4 area: 9.1 cm2 TAPSE: 2.0 cm Time Measurements MV dec time: 0.24 sec Doppler Measurements & Calculations MV E max silviano: 58.2 cm/sec Lat Peak E' Silviano: 7.8 cm/sec Med Peak E' Silviano: 7.0 cm/sec MV A max silviano: 88.6 cm/sec E/E' lat: 7.5 E/E' med: 8.3 MV E/A: 0.66 MV dec slope: 237.5 cm/sec2 Ao V2 max: 135.2 cm/sec LV V1 max: 120.4 cm/sec Ao max P.3 mmHg LV V1 max P.8 mmHg Ao V2 mean: 94.2 cm/sec LV V1 mean P.2 mmHg Ao mean P.0 mmHg LV V1 mean: 84.2 cm/sec Ao V2 VTI: 26.8 cm LV V1 VTI: 24.9 cm AV (velocity ratio): 0.93 ODILIA(I,D): 2.6 cm2 ODILIA(V,D): 2.5 cm2 SV(LVOT): 70.2 ml PA V2 max: 64.9 cm/sec TR max silviano: 202.4 cm/sec TR max P.4 mmHg ECHO/Echo Complete Interpretation Summary Normal LV size. Left ventricular systolic function is normal. The left ventricular ejection fraction is 60 %. Structurally normal valves. Ordering Physician: Martha Angel Referring Physician: Lennox Babcock Chi Performed By: Arleen Kc RDCS and Student
== END | disposition home or self-care (01) ==
PROVIDERS: PCP Family Medicine Geriatric Medicine; Referring Provider Nurse Practitioner Gerontology; Visit Provider Nurse Practitioner Gerontology
DX: I34.1 Nonrheumatic mitral (valve) prolapse (principal)
CPT/HCPCS: 93306

== ENCOUNTER → 2024-10-25 | Outpatient (CLI) | payer MEDICARE, SELFPAY ==
[2024-10-25 09:42] LABS: Absolute Lymphocyte Count 1.71 X10^3/uL (0.83-4.51); Absolute Neutrophil Count 6.3 X10^3/uL (2.0-7.7); Basophil# 0.07 X10^3/uL; Basophil% 0.8 % (0-1); Eosinophil# 0.13 X10^3/uL; Eosinophils% 1.4 % (0-5); Hematocrit 45.7 % (37-47); Hemoglobin 15.4 g/dL (12.0-15.0); Lymphocyte # 1.71 X10^3/ul (0.83-4.51); Mean Corp Hgb Conc 33.7 g/dL (32-36); Mean Corpuscular Hgb 29.6 pg (27.0-32.0); Mean Corpuscular Volume 87.9 fL (81-99); Mean Platelet Vol. 9.2 fl (6.2-12.0); Monocyte# 0.78 X10^3/uL; Monocyte% 8.7 % (0-10); NRBC Flagged by Analyzer 0 % (0-5); Neutrophil # 6.28 X10^3/uL (2.7-7.7); Neutrophil % 69.7 % (47-70); Platelet Count 366 K/mm3 (150-450); RBC Distribution Width CV 11.8 % (11.6-14.6)
[2024-10-25 10:32] LABS: ALB/GLOB Ratio 0.9 RATIO (0.9-2.4); AST(SGOT) 18 U/L (15-37); Alanine Aminotransfer ALT/SGPT 29 U/L (13-56); Albumin, Serum 3.6 g/dL (3.2-5.0); Alkaline Phosphatase 76 U/L (45-117); Anion Gap 8 (5-15); BUN 12 mg/dL (7-18); BUN/Creat Ratio 15.4 RATIO (10-20); Calcium,Total 9.7 mg/dL (8.5-10.1); Chloride 102 mmol/L (98-107); Creatinine, Serum 0.78 mg/dL (0.55-1.02); EST Glomerular Filtration Rate 76 mL/min (>60); Est Glom Filt Rate - Afr Amer 92 mL/min (>60); Globulin 3.8 g/dL (2.2-4.2); Glucose 106 mg/dL (74-106); Potassium 3.8 mmol/L (3.5-5.1); Protein, Total 7.4 g/dL (6.4-8.2); Sodium Level 138 mmol/L (136-145)
== END | disposition home or self-care (01) ==
LOC: POLAB3 09:26
PROVIDERS: PCP Family Medicine Geriatric Medicine; Visit Provider Family Medicine Geriatric Medicine
DX: I10 Essential (primary) hypertension (principal); E55.9 Vitamin D deficiency, unspecified
CPT/HCPCS: 36415; 80053; 82306; 84443; 85025

== ENCOUNTER → 2025-04-26 | Outpatient (CLI) | payer MEDICARE, SELFPAY ==
[2025-04-26 11:13] LABS: Hematocrit 42.8 % (37-47); Hemoglobin 14.4 g/dL (12.0-15.0); Immature Granulocytes Count 0.030 X10^3/uL (0.0-0.0); Mean Corp Hgb Conc 33.6 g/dL (32-36); Mean Corpuscular Volume 87.3 fL (81-99); Mean Platelet Vol. 10.3 fl (6.2-12.0); NRBC Flagged by Analyzer 0 % (0-5); Platelet Count 356 K/mm3 (150-450); RBC Distribution Width CV 11.9 % (11.6-14.6); RBC Distribution Width SD 38.0 fl (35.1-43.9); Red Blood Count 4.90 M/mm3 (4.2-5.4); White Blood Count 7.7 K/mm3 (4.4-11.0)
[2025-04-26 12:21] LABS: AST(SGOT) 27 U/L (<=31); Alanine Aminotransfer ALT/SGPT 24 U/L (<=34); Albumin, Serum 4.3 g/dL (3.4-4.8); Alkaline Phosphatase 75 U/L (35-104); Anion Gap 12 (5-15); BUN 16 mg/dL (4-19); BUN/Creat Ratio 21.8 RATIO (10-20); Calcium,Total 9.5 mg/dL (7.6-11.0); Carbon Dioxide 23.6 mmol/L (21.0-32.0); Chloride 104 mmol/L (98-108); Globulin 2.8 g/dL (2.2-4.2); Glucose 108 mg/dL (70-99); Potassium 3.9 mmol/L (3.3-5.1); Vitamin D,25 Hydroxy 28.2 ng/mL (30-100)
== END | disposition home or self-care (01) ==
LOC: LAB 10:05
PROVIDERS: PCP Family Medicine Geriatric Medicine; Referring Provider Family Medicine Geriatric Medicine; Visit Provider Family Medicine Geriatric Medicine
DX: I10 Essential (primary) hypertension (principal); E55.9 Vitamin D deficiency, unspecified
CPT/HCPCS: 36415; 80053; 82306; 84443; 85025

== ENCOUNTER → 2025-05-17 | Outpatient (CLI) | payer MEDICARE, SELFPAY | END | disposition home or self-care (01) | LOC: POLAB3 13:48 | PROVIDERS: PCP Family Medicine Geriatric Medicine; Visit Provider Family Medicine Geriatric Medicine | DX: R68.83 Chills (without fever) (principal) | CPT/HCPCS: 87631 ==

== ENCOUNTER → 2025-06-07 | Outpatient (CLI) | payer MEDICARE, SELFPAY ==
--- NOTE | 2025-06-07 08:07 | BD_ITS ---
PROCEDURE: DEXA BONE DENSITY STUDY 06/07/2025 REASON FOR EXAM: F, age 74 y/o . Postmenopausal. TECHNIQUE: Procedure Code: BDDBD Modality: DX Procedure: DEXA BONE DENSITY STUDY COMPARISON: June 01, 2023. FINDINGS: BMD and T-SCORES Lumbar spine: 0.951 g/cm2, T-score -0.8 Levels: L1 through L4 Change from prior: Improvement of 4.9%. Left femoral neck: 0.82 g/cm2, T-score -0.2 Femoral neck comparison data not recommended for monitoring change. Left total hip: 1.004 g/cm2, T-score 0.5 Change from prior: Loss of 4.4%. Right femoral neck: 0.805 g/cm2, T-score -0.4 Femoral neck comparison data not recommended for monitoring change. Right total hip: 0.998 g/cm2, T-score 0.5 Change from prior: Loss of 1.1%. The World Health Organization has defined the following categories based on bone density: Normal bone density: T-score equal to or greater than -1.0 Osteopenia: T-score between -1.0 and -2.5 Osteoporosis: T-score equal to or less than -2.5 FRAX (or Comparable) Fracture Risk Assessment: 10 Year Probability of Fracture: Major Osteoporotic Fracture: 19% Hip Fracture: 7.8% (Note: FRAX is not to be reported in setting of normal range bone density, osteoporosis on DEXA, known history of osteoporosis, prior osteoporotic hip or vertebral fracture, or for any patient undergoing pharmacological treatment for bone loss.) The National Osteoporosis Foundation (NOF) recommends pharmacological treatment for patients with a FRAX 10-year risk of 3% or higher for a hip fracture, or 20% or higher for a major osteoporotic fracture, to prevent osteoporosis and reduce fracture risk. The patient does not meet the pharmacological treatment recommendations for prevention of osteoporosis. BD/Dexa Bone Density Study IMPRESSION: NORMAL T-SCORES. Recommend follow-up as clinically warranted. [id number]
--- NOTE | 2025-06-07 08:07 | BI_ITS ---
EXAM: SCRN MAMM (CAD)W/CARLTON BILAT DATE: 06/07/2025 CLINICAL HISTORY: F, Age 74 y/o , SCREENING No family history. TECHNIQUE: Procedure Code: [id number] Modality: MG Procedure: SCRN MAMM (CAD)W/CARLTON BILAT COMPARISON: Prior exam(s) dated June 06, 2024.. FINDINGS: TISSUE DENSITY: There are scattered areas of fibroglandular density. Bilateral Breast Mammographic Findings: No significant masses, calcifications or other abnormalities are identified. No suspicious masses, areas of developing architectural distortion, or suspicious calcifications. There has been no significant interval change. BI/SCRN MAMM (CAD)W/CARLTON BILAT IMPRESSION: Stable bilateral screening mammogram. OVERALL FINAL ASSESSMENT BI-RADS 1: NEGATIVE. RECOMMENDATION: Routine annual follow-up in 1 Year A letter with findings and recommendations will be mailed to the patient. Reading [id number]
== END | disposition home or self-care (01) ==
LOC: OPBD 08:06
PROVIDERS: PCP Family Medicine Geriatric Medicine; Referring Provider Family Medicine Geriatric Medicine; Visit Provider Family Medicine Geriatric Medicine
DX: Z12.31 Encounter for screening mammogram for malignant neoplasm of breast (principal); M81.0 Age-related osteoporosis without current pathological fracture
CPT/HCPCS: 77063; 77067; 77080